=== PATIENT | male | born 1955 | race Caucasian/White ===

== ENCOUNTER 2020-07-10 13:57 | Inpatient (IN) | payer OTHER ==
--- NOTE | 2020-07-10 14:09 | BHS.RME ---
Substance Use & Tx History - Substance Use History Xanax Substance amount: 2mg 3-4 tabs Frequency of use: Daily Substance route: Oral Date of Last Use: 07/10/20 Nicotine Substance amount: 20 ciggs Frequency of use: Daily Substance route: Smoking Date of Last Use: 07/10/20 Physical/Psych/Mental Status - Behavior General Behavior: Increased activity (restlessness, agitation) Eye Contact: Normal - Cooperativeness Cooperativeness: Cooperative - Thinking Thought Processes: Tight, Logical, Goal Directed - Physical Health Problems Is patient presently having any pain?: No Does patient presently have any injuries (include location): No Does patient currently have a fever: No Is patient : No CIWA Nausea/Vomitin-No Nausea/No Vomiting Muscle Tremors: 2 Anxiety: 2 Agitation: 2 Paroxysmal Sweats: No Perspiration Orientation: 0-Oriented Tacttile Disturbances: 0-None Auditory Disturbances: 0-None Visual Disturbances: 0-None Headache: 0-None Present CIWA-Ar Total Score: 6
--- NOTE | 2020-07-10 15:55 | HP ---
CIWA Score Nausea/Vomitin-No Nausea/No Vomiting (Patient has poor living conditions and is at high risk of relapse.) Muscle Tremors: 2 Anxiety: 2 Agitation: 2 Paroxysmal Sweats: No Perspiration Orientation: 0-Oriented Tacttile Disturbances: 0-None Auditory Disturbances: 0-None Visual Disturbances: 0-None Headache: 0-None Present CIWA-Ar Total Score: 6 - Admission Criteria OASAS Guidelines: Admission for Medically Managed Detox: Requires at least one of the followin. CIWA greater than 12 2. Seizures within the past 24 hours 3. Delirium tremens within the past 24 hours 4. Hallucinations within the past 24 hours 5. Acute intervention needed for co occurring medical disorder 6. Acute intervention needed for co occurring psychiatric disorder 7. Severe withdrawal that cannot be handled at a lower level of care (continued vomiting, continued diarrhea, abnormal vital signs) requiring intravenous medication and/or fluids 8. Admitting History and Physical - Admission History of Present Illness: Patient is a 64 y.o. M PMHx of diabetes, asthma, epilepsy, hep c. Substance use consists of Xanax 3-4 2mg tabs a day and smoke several cigarettes a day. Patient is in no acute distress and has no further complaints. - Substance Use History Xanax Substance amount: 2mg 3-4 tabs Frequency of use: Daily Substance route: Oral Date of Last Use: 07/10/20 Nicotine Substance amount: 20 ciggs Frequency of use: Daily Substance route: Smoking Date of Last Use: 07/10/20 History Source: Patient Limitations to Obtaining History: No Limitations - Past Medical History REGULATORY AFFAIRS ASSISTANT: Yes: Seizure Cardiovascular: No: HTN, Hyperlipdemia Pulmonary: Yes: Pneumonia. No: Pulmonary Embolus Gastrointestinal: No: GERD, GI Bleed Hepatobiliary: Yes: Hepatitis C Infectious Disease: No: HIV, STD's, Tuberculosis Psych: Yes: Depression - Past Surgical History Past Surgical History: Yes: Joint Replacement (R hip fracture and L leg hardware) - Smoking History Smoking history: Current every day smoker Have you smoked in the past 12 months: Yes Aproximately how many cigarettes per day: 8 - Alcohol/Substance Use Hx Alcohol Use: No History of Substance Use: reports: Prescription (xanax) - Social History Usual Living Arrangement: Yes: Alone ADL: Independent Occupation: none History of Recent Travel: No Admission ROS S - HPI Allergies/Adverse Reactions: Allergies Allergy/AdvReac Type Severity Reaction Status Date / Time No Known Allergies Allergy Verified 05/12/16 12:36 History of Present Illness: Patient is a 64 y.o. M PMHx of diabetes, asthma, epilepsy, hep c. Substance use consists of Xanax 3-4 2mg tabs a day and smoke several cigarettes a day. Patient is in no acute distress and has no further complaints. - Substance Use History Xanax Substance amount: 2mg 3-4 tabs Frequency of use: Daily Substance route: Oral Date of Last Use: 07/10/20 Nicotine Substance amount: 20 ciggs Frequency of use: Daily Substance route: Smoking Date of Last Use: 07/10/20 Exam Limitations: No Limitations - Ebola screening Have you traveled outside of the country in the last 21 days: No Have you had contact with anyone from an Ebola affected area: No Have you been sick,other than usual withdrawal symptoms: No Do you have a fever: No - Review of Systems Constitutional: No Symptoms Reported EENT: denies: Blurred Vision Respiratory: reports: Cough. denies: Shortness of Breath Cardiac: reports: Chest Pain. denies: Lightheadedness GI: denies: Constipated, Diarrhea, Nausea, Vomiting : reports: No Symptoms Reported Musculoskeletal: reports: No Symptoms Reported, Joint Stiffness. denies: Muscle Weakness Integumentary: reports: No Symptoms Reported Neuro: reports: Seizure. denies: Headache, Numbness Endocrine: reports: No Symptoms Reported Hematology: denies: Easy Bleeding Psychiatric: reports: No Sypmtoms Reported, Judgement Intact, Mood/Affect Appropiate, Orientated x3, Depressed Other Systems: Reviewed and Negative Patient History - Patient Medical History Hx Anemia: No Hx Asthma: Yes (MDI) Hx Chronic Obstructive Pulmonary Disease (COPD): Yes (EMPHYSEMA;BRONCHITIS) Hx Cardiac Disorders: No Hx Hypertension: No Hx Hypercholesterolemia: No HX Cerebrovascular Accident: No Hx Seizures: Yes (many years;ON [facility]) Hx Diabetes: Yes (BGM-89) Hx Gastrointestinal Disorders: No Hx Genitourinary Disorders: No Hx Sexually Transmitted Disorders: No Hx Renal Disease (ESRD): No Hx Thyroid Disease: No Hx Human Immunodeficiency Virus (HIV): No (NEGATIVE HX) Hx Hepatitis C: Yes (TREATED X 1 YR) Hx Depression: No Hx Suicide Attempt: No Hx Schizophrenia: No - Patient Surgical History Past Surgical History: Yes Hx Orthopedic Surgery: Yes (Fx lt leg 2015) Anesthesia Reaction: No - PPD History Date: 05/14/16 - Smoking Cessation Smoking history: Current every day smoker Have you smoked in the past 12 months: Yes Aproximately how many cigarettes per day: 8 Hx Chewing Tobacco Use: No Initiated information on smoking cessation: Yes 'Breaking Loose' booklet given: 07/10/[address] [facility] - Physical General Appearance: Yes: Within Normal Limits, No Apparent Distress, Nourished, Appropriately Dressed HEENTM: Yes: Within Normal Limits Respiratory: Yes: Within Normal Limits, No Respiratory Distress, No Accessory Muscle Use, Crackles Cardiology: Yes: Within Normal Limits, Regular Rhythm, Regular Rate Abdominal: Yes: Within Normal Limits, Normal Bowel Sounds, Non Tender, Flat, Soft. No: Tenderness Back: Yes: Within Normal Limits, Normal Inspection. No: CVA Tenderness Musculoskeletal: Yes: Within Normal Limits, Gait Steady, Muscle Pain (L leg) Extremities: Yes: Within Normal Limits, Normal Inspection, Non-Tender. No: Calf Tenderness Neurological: Yes: Within Normal Limits, Fully Oriented, Alert, Normal Mood/Affect, Normal Response Integumentary: Yes: Within Normal Limits, Normal Color, Dry - Diagnostic (1) Asthma Current Visit: No Status: Chronic Qualifiers: Asthma severity: mild intermittent Asthma complication type: uncomplicated (2) History of seizure disorder Current Visit: No Status: Chronic (3) Methadone maintenance therapy patient Current Visit: No Status: Chronic (4) Sedative, hypnotic or anxiolytic dependence with withdrawal, uncomplicated Current Visit: No Status: Chronic (5) Type 2 diabetes mellitus Current Visit: No Status: Chronic Qualifiers: Diabetes mellitus complication status: without complication (6) Use of cane as ambulatory aid Current Visit: No Status: Chronic Cleared for Admission [facility] - Detox or Rehab [facility] Level of Care: Medically Managed Vital Signs - Vital Signs Vital signs refused: No Temperature: 99.6 F Pulse Rate: 84 Respiratory Rate: 12 Blood Pressure: 141/79 - Height Height: 1.73 m - Weight Weight: 48.081 kg - BMI Body Mass Index (BMI): 16.1 Urine Drug Screen - Results Urine drug screen results: BZO-Benzodiazepines Inpatient Rehab Admission - Rehab Decision to Admit Inpatient rehab admission?: No
[2020-07-10] MEDS ORDERED: LORazepam 1 MG TABLET PO PRN (16:01)
[2020-07-10] MEDS ORDERED: MAGNESIUM HYDROX 2400MG/30ML ORAL SUSPENSION 30 ML CUP PO PRN (16:01)
[2020-07-10] MEDS ORDERED: MAG HYDROX/AL HYDROX/SIMETH 30 ML UNIT-DOSE CUP PO PRN (16:01)
[2020-07-10] MEDS ORDERED: MAGNESIUM CITRATE 300 ML BOTTLE PO PRN (16:01)
[2020-07-10] MEDS ORDERED: NICOTINE POLACRILEX 2 MG GUM BUC PRN (16:01)
[2020-07-10] MEDS ORDERED: IBUPROFEN 400 MG TABLET (FP) PO PRN (16:01)
[2020-07-10] MEDS ORDERED: ONDANSETRON *ODT* 4 MG TABLET SL PRN (16:01)
[2020-07-10] MEDS ORDERED: MENTHOL/PHENOL 1 EACH UD MM PRN (16:01)
[2020-07-10] MEDS ORDERED: METHOCARBAMOL 500 MG TABLET PO PRN (16:01)
[2020-07-10] MEDS ORDERED: BISMUTH SUBSALICYLATE 524 MG/30 ML UD PO PRN (16:01)
[2020-07-10] MEDS ORDERED: ACETAMINOPHEN 325 MG TABLET (FP) PO PRN ×2 (16:01)
[2020-07-10] MEDS: LORazepam 2 MG TABLET PO SCH ×2 (19:22→23:42)
[2020-07-10] MEDS: hydrOXYzine PAMOATE 25 MG CAPSULE (FP) PO SCH ×2 (19:29→23:25)
[2020-07-10] MEDS: levETIRAcetam 500 MG TABLET (FP) PO SCH (23:24)
[2020-07-10] MEDS: THIAMINE HCL 100 MG TABLET (FP) PO SCH (23:25)
[2020-07-10] MEDS: MELATONIN 5 MG TABLETS PO SCH (23:42)
[2020-07-11] MEDS: LORazepam 2 MG TABLET PO SCH ×4 (06:35→22:41)
[2020-07-11] MEDS: hydrOXYzine PAMOATE 25 MG CAPSULE (FP) PO SCH ×5 (06:35→22:41)
[2020-07-11] MEDS: metFORMIN HCL 500 MG TABLET (FP) PO SCH (06:38)
[2020-07-11] MEDS ORDERED: ALBUTEROL SO4 HFA INHALER IH PRN (09:44)
[2020-07-11] MEDS ORDERED: METHADONE HCL 40 MG DISPERSABLE TABLET PO ONE (10:00)
[2020-07-11] MEDS: levETIRAcetam 500 MG TABLET (FP) PO SCH ×2 (10:25→22:41)
[2020-07-11] MEDS: PRENATAL VITAMINS W/ FOLIC ACID TABLET (FP) PO SCH (10:25)
[2020-07-11 10:31] LABS: HEMATOCRIT 31.4 % (35.4-49); MCH 26.5 pg (25.7-33.7); MCHC 31.9 g/dl (32.0-35.9); MEAN CELL VOLUME 82.9 fl (80-96); MEAN PLT VOLUME 9.9 fl (7.5-11.1); PLATELET COUNT 119 K/MM3 (134-434); RBC 3.78 M/mm3 (4.00-5.60); RDW 18.9 % (11.9-15.9); WHITE BLOOD COUNT 6.1 K/mm3 (4.0-10.0)
[2020-07-11 10:34] LABS: ALBUMIN 2.7 g/dl (3.4-5.0); BILIRUBIN,TOTAL 0.2 mg/dL (0.2-1); BLOOD UREA NITROGEN 26.3 mg/dL (7-18); CALCIUM 8.5 mg/dL (8.5-10.1); POTASSIUM 4.4 mmol/L (3.5-5.1); TOT PROT 6.5 g/dl (6.4-8.2)
--- NOTE | 2020-07-11 10:41 | PN ---
[facility] CIWA - CIWA Score Nausea/Vomitin-Mild Nausea/No Vomiting Muscle Tremors: 2 Anxiety: 2 Agitation: 2 Paroxysmal Sweats: 1-Minimal Palms Moist Orientation: 0-Oriented Tacttile Disturbances: 1-Very Mild Itch/Numbness Auditory Disturbances: 0-None Visual Disturbances: 0-None Headache: 1-Very Mild CIWA-Ar Total Score: 10 S Progress Note (SOAP) Subjective: alert,irritable,anxious,interrupted sleep,tremor,aching pain Objective: 07/11/20 10:37 Vital Signs Temperature 97.5 F L 07/11/20 08:43 Pulse Rate 64 07/11/20 08:43 Respiratory Rate 18 07/11/20 08:43 Blood Pressure 149/79 07/11/20 08:43 O2 Sat by Pulse Oximetry (%) 97 07/11/20 06:24 Laboratory Last Values WBC 6.1 K/mm3 (4.0-10.0) 07/11/20 07:50 RBC 3.78 M/mm3 (4.00-5.60) L 07/11/20 07:50 Hgb 10.0 GM/dL (11.7-16.9) L 07/11/20 07:50 Hct 31.4 % (35.4-49) L D 07/11/20 07:50 MCV 82.9 fl (80-96) 07/11/20 07:50 MCH 26.5 pg (25.7-33.7) 07/11/20 07:50 MCHC 31.9 g/dl (32.0-35.9) L 07/11/20 07:50 RDW 18.9 % (11.9-15.9) H 07/11/20 07:50 Plt Count 119 K/MM3 (134-434) L D 07/11/20 07:50 MPV 9.9 fl (7.5-11.1) D 07/11/20 07:50 Sodium 142 mmol/L (136-145) 07/11/20 07:50 Potassium 4.4 mmol/L (3.5-5.1) 07/11/20 07:50 Chloride 109 mmol/L (98-107) H 07/11/20 07:50 Carbon Dioxide 27 mmol/L (21-32) 07/11/20 07:50 Anion Gap 7 MMOL/L (8-16) L 07/11/20 07:50 BUN 26.3 mg/dL (7-18) H 07/11/20 07:50 Creatinine 1.0 mg/dL (0.55-1.3) 07/11/20 07:50 Est GFR (CKD-EPI)AfAm 91.78 07/11/20 07:50 Est GFR (CKD-EPI)NonAf 79.19 07/11/20 07:50 POC Glucometer 102 UNITS (80-120) 07/11/20 06:20 Random Glucose 108 mg/dL (74-106) H 07/11/20 07:50 Calcium 8.5 mg/dL (8.5-10.1) 07/11/20 07:50 Total Bilirubin 0.2 mg/dL (0.2-1) 07/11/20 07:50 AST 37 U/L (15-37) 07/11/20 07:50 ALT 40 U/L (13-61) 07/11/20 07:50 Alkaline Phosphatase 128 U/L (45-117) H 07/11/20 07:50 Total Protein 6.5 g/dl (6.4-8.2) 07/11/20 07:50 Albumin 2.7 g/dl (3.4-5.0) L 07/11/20 07:50 Assessment: 07/11/20 10:38 withdrawal symptom Plan: continue detox librium regimen,mmtp 80 mgs/day maintenance,encourage oral fluid,repeat bmp in am
[2020-07-11] MEDS: NICOTINE 7 MG/24 HOURS TOPICAL PATCH TD SCH (10:49)
--- NOTE | 2020-07-11 12:32 | CONSULT ---
[facility] Psychiatric Consult - Data Date of interview: 07/11/20 Admission source: [facility] Identifying data: Readmission to [facility] at [address] [place] [address] for this 64 y/o male self-referred for detoxification treatment. XENIA issues : opioid, benzodiazepine (xanax), nicotine. Patient is single, no dependents, homelss, unemployed and supported on SSI benefits. Substance Abuse History: Discussed with the patient. XENIA profile as follows : Xanax. Substance amount: 2mg 3-4 tabs. Frequency of use: Daily. Substance route: Oral. Date of Last Use: 07/10/20. Nicotine. Substance amount: 20 cigs. Frequency of use: Daily. Substance route: Smoking. Date of Last Use: 07/10/20. Smoking history: Current every day smoker. Have you smoked in the past 12 months: Yes. Aproximately how many cigarettes per day: 8. - Alcohol/Substance Use. Hx Alcohol Use: No. History of Substance Use: reports: Prescription (xanax) Medical History: Medicall profile is remarkable for diabetes mellitus, bronchial asthma, hepatitis C, emphysema, seizure disorder and history of orthosurgery : joint replacement (right hip fracture) + ORIF (left leg : hardware in situ). No known allergies. Psychiatric History: Patient is a limited historian (forgetful). He denies history of psychiatric hospitalizations. Mr Mcarthur reports current psychiatric follow-up at the [facility] MMTP program in [place], [place] (maintained on 80 mg of methadone daily). He indicates that he has been prescribed olanzapine but he does not recall dose. Endorses diagnosis of Anxiety Disorder. Patient denies history of suicide attempts. Physical/Sexual Abuse/Trauma History: Patient denies history of abuse. Additional Comment: Urine drug screen results: BZO-Benzodiazepines. Noted. Mental Status Exam - Mental Status Exam Alert and Oriented to: Time, Place, Person Cognitive Function: Good Patient Appearance: Unkempt, Disheveled (small stature, cachectic frame) Mood: Nervous, Withdrawn Affect: Mood Congruent, Constricted Patient Behavior: Fatigued, Appropriate, Cooperative Speech Pattern: Clear, Appropriate Voice Loudness: Normal Thought Process: Goal Oriented Thought Disorder: Not Present Hallucinations: Denies Suicidal Ideation: Denies Homicidal Ideation: Denies Insight/Judgement: Poor Sleep: Fair Appetite: Poor, Weight loss Gait/Station: Other (walks with cane) Psychiatric Findings - Problem List ([place] 1, 2,3) (1) Sedative, hypnotic or anxiolytic dependence with withdrawal, uncomplicated Current Visit: Yes Status: Acute (2) Opioid dependence on agonist therapy Current Visit: Yes Status: Chronic (3) Nicotine dependence Current Visit: Yes Status: Chronic (4) Substance induced mood disorder Current Visit: Yes Status: Chronic (5) History of anxiety disorder Current Visit: Yes Status: Chronic - Initial Treatment Plan Initial Treatment Plan: Psychoeducation. Sleep hygiene. Detoxification in prog ress. Observation.
[2020-07-11 13:08] VITALS: BMI 16.1
--- NOTE | 2020-07-11 13:33 | EKG ---
Test Reason : Blood Pressure : / mmHG Vent. Rate : 068 BPM Atrial Rate : 068 BPM P-R Int : 152 ms QRS Dur : 076 ms QT Int : 426 ms P-R-T Axes : 071 -56 073 degrees QTc Int : 452 ms SINUS RHYTHM WITH OCCASIONAL PREMATURE VENTRICULAR COMPLEXES LEFT AXIS DEVIATION ABNORMAL ECG Confirmed by MD NILA, ROGERIO ([id number]) on 07/11/2020 1:32:39 PM Referred By: Confirmed By:ROGERIO DOTSON MD
[2020-07-11] MEDS: THIAMINE HCL 100 MG TABLET (FP) PO SCH (22:41)
[2020-07-11] MEDS: MELATONIN 5 MG TABLETS PO SCH (22:41)
[2020-07-12] MEDS: hydrOXYzine PAMOATE 25 MG CAPSULE (FP) PO SCH ×5 (05:39→22:22)
[2020-07-12] MEDS: LORazepam 1 MG TABLET PO SCH ×4 (05:39→22:22)
[2020-07-12] MEDS: METHADONE HCL 40 MG DISPERSABLE TABLET PO SCH (05:39)
[2020-07-12] MEDS: metFORMIN HCL 500 MG TABLET (FP) PO SCH ×2 (06:26→17:37)
[2020-07-12] MEDS ORDERED: metFORMIN HCL 500 MG TABLET (FP) PO SCH (08:30)
[2020-07-12] MEDS: levETIRAcetam 500 MG TABLET (FP) PO SCH ×2 (10:21→22:23)
[2020-07-12] MEDS: PRENATAL VITAMINS W/ FOLIC ACID TABLET (FP) PO SCH (10:21)
[2020-07-12] MEDS: NICOTINE 7 MG/24 HOURS TOPICAL PATCH TD SCH (10:23)
[2020-07-12 11:09] LABS: CALCIUM 9.4 mg/dL (8.5-10.1); POTASSIUM 4.5 mmol/L (3.5-5.1)
[2020-07-12 11:23] LABS: BLOOD UREA NITROGEN 30.1 mg/dL (7-18)
--- NOTE | 2020-07-12 13:01 | PN ---
S CIWA - CIWA Score Nausea/Vomitin-Mild Nausea/No Vomiting Muscle Tremors: 2 Anxiety: 2 Agitation: 2 Paroxysmal Sweats: No Perspiration Orientation: 0-Oriented Tacttile Disturbances: 0-None Auditory Disturbances: 0-None Visual Disturbances: 0-None Headache: 2-Mild CIWA-Ar Total Score: 9 BHS Progress Note (SOAP) Subjective: alert,irritable,anxious,interrupted sleep,tremor,aching pain in the body,nausea Objective: 07/12/20 13:02 Vital Signs Temperature 97.3 F L 07/12/20 08:31 Pulse Rate 101 H 07/12/20 08:31 Respiratory Rate 20 07/12/20 08:31 Blood Pressure 138/78 07/12/20 08:31 O2 Sat by Pulse Oximetry (%) 98 07/12/20 06:22 07/12/20 13:02 Laboratory Last Values WBC 6.1 K/mm3 (4.0-10.0) 07/11/20 07:50 RBC 3.78 M/mm3 (4.00-5.60) L 07/11/20 07:50 Hgb 10.0 GM/dL (11.7-16.9) L 07/11/20 07:50 Hct 31.4 % (35.4-49) L D 07/11/20 07:50 MCV 82.9 fl (80-96) 07/11/20 07:50 MCH 26.5 pg (25.7-33.7) 07/11/20 07:50 MCHC 31.9 g/dl (32.0-35.9) L 07/11/20 07:50 RDW 18.9 % (11.9-15.9) H 07/11/20 07:50 Plt Count 119 K/MM3 (134-434) L D 07/11/20 07:50 MPV 9.9 fl (7.5-11.1) D 07/11/20 07:50 Sodium 138 mmol/L (136-145) 07/12/20 08:45 Potassium 4.5 mmol/L (3.5-5.1) 07/12/20 08:45 Chloride 103 mmol/L (98-107) 07/12/20 08:45 Carbon Dioxide 29 mmol/L (21-32) 07/12/20 08:45 Anion Gap 6 MMOL/L (8-16) L 07/12/20 08:45 BUN 30.1 mg/dL (7-18) H 07/12/20 08:45 Creatinine 1.0 mg/dL (0.55-1.3) 07/12/20 08:45 Est GFR (CKD-EPI)AfAm 91.78 07/12/20 08:45 Est GFR (CKD-EPI)NonAf 79.19 07/12/20 08:45 POC Glucometer 80 UNITS (80-120) 07/12/20 05:44 Random Glucose 107 mg/dL (74-106) H 07/12/20 08:45 Calcium 9.4 mg/dL (8.5-10.1) 07/12/20 08:45 Total Bilirubin 0.2 mg/dL (0.2-1) 07/11/20 07:50 AST 37 U/L (15-37) 07/11/20 07:50 ALT 40 U/L (13-61) 07/11/20 07:50 Alkaline Phosphatase 128 U/L (45-117) H 07/11/20 07:50 Total Protein 6.5 g/dl (6.4-8.2) 07/11/20 07:50 Albumin 2.7 g/dl (3.4-5.0) L 07/11/20 07:50 Syphilis Serology Non-reactive (NONREACTIVE) 07/11/20 07:50 COVID-19 ([facility]) Not detected (Not Detected) 07/10/20 17:30 Assessment: 07/12/20 13:03 withdrawal symptom Plan: continue detox ativan regimen,encourage fluid,hydration,continue detox methadone maintenance 80 mgs/day maintenance
[2020-07-12] MEDS: THIAMINE HCL 100 MG TABLET (FP) PO SCH (22:23)
[2020-07-12] MEDS: MELATONIN 5 MG TABLETS PO SCH (22:23)
[2020-07-13] MEDS: metFORMIN HCL 500 MG TABLET (FP) PO SCH ×2 (06:33→18:30)
[2020-07-13] MEDS: LORazepam 0.5 MG TABLET PO SCH ×4 (06:33→22:28)
[2020-07-13] MEDS: hydrOXYzine PAMOATE 25 MG CAPSULE (FP) PO SCH ×5 (06:33→22:28)
[2020-07-13] MEDS: METHADONE HCL 40 MG DISPERSABLE TABLET PO SCH (06:33)
[2020-07-13] MEDS: LORazepam 0.5 MG TABLET PO PRN ×2 (09:30→14:07)
[2020-07-13] MEDS: levETIRAcetam 500 MG TABLET (FP) PO SCH ×2 (10:21→22:28)
[2020-07-13] MEDS: PRENATAL VITAMINS W/ FOLIC ACID TABLET (FP) PO SCH (10:22)
[2020-07-13] MEDS: NICOTINE 7 MG/24 HOURS TOPICAL PATCH TD SCH (10:22)
--- NOTE | 2020-07-13 15:18 | PN ---
[facility] CIWA - CIWA Score Nausea/Vomitin-No Nausea/No Vomiting Muscle Tremors: None Anxiety: 1-Mildly Anxious Agitation: 0-Normal Activity Paroxysmal Sweats: No Perspiration Orientation: 0-Oriented Tacttile Disturbances: 0-None Auditory Disturbances: 0-None Visual Disturbances: 0-None Headache: 0-None Present CIWA-Ar Total Score: 1 S Progress Note (SOAP) Subjective: alert,no complaint Objective: 07/13/20 15:17 Vital Signs Temperature 98.2 F 07/13/20 12:38 Pulse Rate 87 07/13/20 12:38 Respiratory Rate 18 07/13/20 12:38 Blood Pressure 132/79 07/13/20 12:38 O2 Sat by Pulse Oximetry (%) 98 07/13/20 12:38 Assessment: 07/13/20 15:17 no withdrawal symptom Plan: stable for discharge to rehab
--- NOTE | 2020-07-13 15:19 | DS ---
[facility] Detox Discharge Summary Admission Date: 07/10/20 Discharge Date: 07/13/20 - History Present History: Sedative Dependence, MMTP Additional Comments: alert,oriented x 3 ambulation on the unit lung clear on auscultation bilaterally no abdominal pain no swelling of the leg no withdrawal symptom stable for discharge to [facility] rehab Pertinent Past History: asthma hepatitis c insomnia type 2 dm - Physical Exam Results Vital Signs: Vital Signs Temperature 98.2 F 07/13/20 12:38 Pulse Rate 87 07/13/20 12:38 Respiratory Rate 18 07/13/20 12:38 Blood Pressure 132/79 07/13/20 12:38 O2 Sat by Pulse Oximetry (%) 98 07/13/20 12:38 Pertinent Admission Physical Exam Findings: withdrawal signs and symptom Laboratory Last Values WBC 6.1 K/mm3 (4.0-10.0) 07/11/20 07:50 RBC 3.78 M/mm3 (4.00-5.60) L 07/11/20 07:50 Hgb 10.0 GM/dL (11.7-16.9) L 07/11/20 07:50 Hct 31.4 % (35.4-49) L D 07/11/20 07:50 MCV 82.9 fl (80-96) 07/11/20 07:50 MCH 26.5 pg (25.7-33.7) 07/11/20 07:50 MCHC 31.9 g/dl (32.0-35.9) L 07/11/20 07:50 RDW 18.9 % (11.9-15.9) H 07/11/20 07:50 Plt Count 119 K/MM3 (134-434) L D 07/11/20 07:50 MPV 9.9 fl (7.5-11.1) D 07/11/20 07:50 Sodium 138 mmol/L (136-145) 07/12/20 08:45 Potassium 4.5 mmol/L (3.5-5.1) 07/12/20 08:45 Chloride 103 mmol/L (98-107) 07/12/20 08:45 Carbon Dioxide 29 mmol/L (21-32) 07/12/20 08:45 Anion Gap 6 MMOL/L (8-16) L 07/12/20 08:45 BUN 30.1 mg/dL (7-18) H 07/12/20 08:45 Creatinine 1.0 mg/dL (0.55-1.3) 07/12/20 08:45 Est GFR (CKD-EPI)AfAm 91.78 07/12/20 08:45 Est GFR (CKD-EPI)NonAf 79.19 07/12/20 08:45 POC Glucometer 108 UNITS (80-120) 07/13/20 06:41 Random Glucose 107 mg/dL (74-106) H 07/12/20 08:45 Calcium 9.4 mg/dL (8.5-10.1) 07/12/20 08:45 Total Bilirubin 0.2 mg/dL (0.2-1) 07/11/20 07:50 AST 37 U/L (15-37) 07/11/20 07:50 ALT 40 U/L (13-61) 07/11/20 07:50 Alkaline Phosphatase 128 U/L (45-117) H 07/11/20 07:50 Total Protein 6.5 g/dl (6.4-8.2) 07/11/20 07:50 Albumin 2.7 g/dl (3.4-5.0) L 07/11/20 07:50 Syphilis Serology Non-reactive (NONREACTIVE) 07/11/20 07:50 COVID-19 ([facility]) Not detected (Not Detected) 07/10/20 17:30 Vital Signs Temperature 98.2 F 07/13/20 12:38 Pulse Rate 87 07/13/20 12:38 Respiratory Rate 18 07/13/20 12:38 Blood Pressure 132/79 07/13/20 12:38 O2 Sat by Pulse Oximetry (%) 98 07/13/20 12:38 - Treatment Hospital Course: Detox Protocol Followed, Detoxed Safely, Responded well, Discharged Condition Good, Rehab Referral Accepted Patient has Accepted a Rehab Referral to: [facility] - Medication Discharge Medications: Ambulatory Orders Albuterol Sulfate Inhaler - [Ventolin Hfa Inhaler -] 2 inh PO Q4H PRN 05/12/16 Levetiracetam [Keppra] 500 mg PO BID 05/12/16 Methadone [Dolophine -] 80 mg PO DAILY 05/12/16 metFORMIN HCL [Metformin HCl] 500 mg PO BID 05/12/16 - Diagnosis (1) Sedative, hypnotic or anxiolytic dependence with withdrawal, uncomplicated Current Visit: Yes Status: Acute (2) Opioid dependence on agonist therapy Current Visit: Yes Status: Chronic (3) Asthma Current Visit: No Status: Chronic Qualifiers: Asthma severity: mild intermittent Asthma complication type: uncomplicated (4) Hepatitis C Current Visit: No Status: Chronic Qualifiers: Viral hepatitis chronicity: chronic Hepatic coma status: without hepatic coma Qualified Code(s): B18.2 - Chronic viral hepatitis C (5) Type 2 diabetes mellitus Current Visit: No Status: Chronic Qualifiers: Diabetes mellitus complication status: without complication (6) Use of cane as ambulatory aid Current Visit: No Status: Chronic - AMA Did Patient Leave Against Medical Advice: No
[2020-07-13 21:26] VITALS: BP 157/81; PULSE 82; TEMP 96.9
[2020-07-13] MEDS: THIAMINE HCL 100 MG TABLET (FP) PO SCH (22:28)
[2020-07-13] MEDS: MELATONIN 5 MG TABLETS PO SCH (22:29)
[2020-07-14] MEDS ORDERED: LORazepam 0.5 MG TABLET PO ONE (05:00)
== END 2020-07-13 22:57 | disposition other institution (70) | DRG 773 ==
LOC: YASAS 13:57 → Y3N 17:11
PROVIDERS: ADMIT Allergy & Immunology; ATTEND Allergy & Immunology
PROC: HZ2ZZZZ Detoxification Services for Substance Abuse Treatment (ICD-10-PCS; principal; 2020-07-10)
DX: F13.230 Sedative, hypnotic or anxiolytic dependence with withdrawal, uncomplicated (principal); F11.20 Opioid dependence, uncomplicated; F17.210 Nicotine dependence, cigarettes, uncomplicated; F19.24 Other psychoactive substance dependence with psychoactive substance-induced mood disorder; F41.9 Anxiety disorder, unspecified; G47.00 Insomnia, unspecified; G40.909 Epilepsy, unspecified, not intractable, without status epilepticus; J45.20 Mild intermittent asthma, uncomplicated; J43.9 Emphysema, unspecified; E11.9 Type 2 diabetes mellitus without complications; Z79.84 Long term (current) use of oral hypoglycemic drugs; B18.2 Chronic viral hepatitis C; Z96.641 Presence of right artificial hip joint; Z99.89 Dependence on other enabling machines and devices; Z56.0 Unemployment, unspecified; Z59.0 Homelessness
CPT/HCPCS: 36415; 80048; 80053; 82962; 85027; 86780; 93005; 93010; U0003

== ENCOUNTER 2020-07-13 15:35 | Inpatient (IN) | payer OTHER ==
[2020-07-13] MEDS ORDERED: LOPERAMIDE HCL 2 MG CAPSULE PO PRN (15:45)
[2020-07-13] MEDS ORDERED: MAG HYDROX/AL HYDROX/SIMETH 30 ML UNIT-DOSE CUP PO PRN (15:45)
[2020-07-13] MEDS ORDERED: MENTHOL/PHENOL 1 EACH UD MM PRN (15:45)
[2020-07-13] MEDS ORDERED: NICOTINE POLACRILEX 2 MG GUM BUC PRN (15:45)
[2020-07-13] MEDS ORDERED: MAGNESIUM HYDROX 2400MG/30ML ORAL SUSPENSION 30 ML CUP PO PRN (15:45)
[2020-07-13] MEDS ORDERED: P-EPHED 60MG/TRIPROLIDI 2.5MG TABLET PO PRN (15:45)
[2020-07-13] MEDS ORDERED: guaiFENesin 200 MG/10 ML 10 ML UNIT-DOSE CUPS PO PRN (15:45)
[2020-07-13] MEDS ORDERED: MAGNESIUM CITRATE 300 ML BOTTLE PO PRN (15:45)
[2020-07-13] MEDS ORDERED: hydrOXYzine PAMOATE 25 MG CAPSULE (FP) PO PRN (15:45)
[2020-07-13] MEDS ORDERED: ACETAMINOPHEN 325 MG TABLET (FP) PO PRN (15:45)
[2020-07-13] MEDS ORDERED: IBUPROFEN 400 MG TABLET (FP) PO PRN (15:45)
--- NOTE | 2020-07-13 15:45 | HP ---
[facility] Rehab Assess/Revision - Admission History Admitted to Rehab from: [facility] Date of Admission to Rehab: 07/13/2020 - Findings Detox History & Physical reviewed: Yes Concur with findings: Yes Comments/Additional Findings: for rehab as protocol Inpatient Rehab Admission - Rehab Decision to Admit Inpatient rehab admission?: Yes - Initial Determination Are CD services needed?: Yes Free of communicable disease: Yes Not in need of hospitalization: Yes - Rehab Admission Criteria Previous failed treatment: Yes Poor recovery environment: Yes Comorbidities: Yes Lacks judgement: No Patient is meeting Inpatient Rehab admission criteria:: Yes
[2020-07-13] MEDS: levETIRAcetam 500 MG TABLET (FP) PO SCH (23:15)
[2020-07-13] MEDS: MELATONIN 5 MG TABLETS PO SCH (23:15)
[2020-07-13] MEDS: metFORMIN HCL 500 MG TABLET (FP) PO SCH (23:15)
[2020-07-13] MEDS: THIAMINE HCL 100 MG TABLET (FP) PO SCH (23:16)
[2020-07-14] MEDS ORDERED: METHADONE HCL 10 MG TABLET PO SCH (06:00)
[2020-07-14] MEDS: METHADONE HCL 40 MG DISPERSABLE TABLET PO SCH (06:20)
[2020-07-14] MEDS: metFORMIN HCL 500 MG TABLET (FP) PO SCH ×2 (07:30→16:46)
[2020-07-14] MEDS: levETIRAcetam 500 MG TABLET (FP) PO SCH ×2 (10:11→21:43)
[2020-07-14] MEDS: PRENATAL VITAMINS W/ FOLIC ACID TABLET (FP) PO SCH (10:11)
[2020-07-14] MEDS: NICOTINE 7 MG/24 HOURS TOPICAL PATCH TD SCH (10:11)
[2020-07-14] MEDS: ALBUTEROL SO4 HFA INHALER IH PRN (11:19)
[2020-07-14] MEDS: MELATONIN 5 MG TABLETS PO SCH (21:43)
[2020-07-14] MEDS: THIAMINE HCL 100 MG TABLET (FP) PO SCH (21:43)
[2020-07-15] MEDS: METHADONE HCL 40 MG DISPERSABLE TABLET PO SCH (05:58)
[2020-07-15] MEDS: metFORMIN HCL 500 MG TABLET (FP) PO SCH ×2 (07:23→17:05)
[2020-07-15] MEDS: ALBUTEROL SO4 HFA INHALER IH PRN (08:22)
[2020-07-15] MEDS: levETIRAcetam 500 MG TABLET (FP) PO SCH ×2 (10:18→21:06)
[2020-07-15] MEDS: PRENATAL VITAMINS W/ FOLIC ACID TABLET (FP) PO SCH (10:18)
[2020-07-15] MEDS: NICOTINE 7 MG/24 HOURS TOPICAL PATCH TD SCH (10:18)
[2020-07-15] MEDS: THIAMINE HCL 100 MG TABLET (FP) PO SCH (21:07)
[2020-07-15] MEDS: MELATONIN 5 MG TABLETS PO SCH (21:07)
[2020-07-16] MEDS: METHADONE HCL 40 MG DISPERSABLE TABLET PO SCH (06:03)
[2020-07-16] MEDS: metFORMIN HCL 500 MG TABLET (FP) PO SCH ×2 (06:55→16:25)
[2020-07-16] MEDS: levETIRAcetam 500 MG TABLET (FP) PO SCH ×2 (09:30→21:00)
[2020-07-16] MEDS: PRENATAL VITAMINS W/ FOLIC ACID TABLET (FP) PO SCH (09:30)
[2020-07-16] MEDS: NICOTINE 7 MG/24 HOURS TOPICAL PATCH TD SCH (09:31)
[2020-07-16] MEDS: THIAMINE HCL 100 MG TABLET (FP) PO SCH (21:00)
[2020-07-16] MEDS: MELATONIN 5 MG TABLETS PO SCH (21:00)
[2020-07-17] MEDS: METHADONE HCL 40 MG DISPERSABLE TABLET PO SCH (06:06)
[2020-07-17] MEDS: ALBUTEROL SO4 HFA INHALER IH PRN (07:16)
[2020-07-17] MEDS: metFORMIN HCL 500 MG TABLET (FP) PO SCH ×2 (07:18→16:31)
[2020-07-17] MEDS: levETIRAcetam 500 MG TABLET (FP) PO SCH ×2 (09:51→21:02)
[2020-07-17] MEDS: PRENATAL VITAMINS W/ FOLIC ACID TABLET (FP) PO SCH (09:51)
[2020-07-17] MEDS: NICOTINE 7 MG/24 HOURS TOPICAL PATCH TD SCH (10:00)
[2020-07-17] MEDS: MELATONIN 5 MG TABLETS PO SCH (21:02)
[2020-07-17] MEDS: THIAMINE HCL 100 MG TABLET (FP) PO SCH (21:02)
[2020-07-18] MEDS: METHADONE HCL 40 MG DISPERSABLE TABLET PO SCH (05:58)
[2020-07-18] MEDS: metFORMIN HCL 500 MG TABLET (FP) PO SCH ×2 (07:19→16:35)
[2020-07-18] MEDS ORDERED: MASKS NR ONE (07:22)
[2020-07-18] MEDS: PRENATAL VITAMINS W/ FOLIC ACID TABLET (FP) PO SCH (09:51)
[2020-07-18] MEDS: levETIRAcetam 500 MG TABLET (FP) PO SCH ×2 (09:51→21:20)
[2020-07-18] MEDS: NICOTINE 7 MG/24 HOURS TOPICAL PATCH TD SCH (09:52)
[2020-07-18] MEDS: ALBUTEROL SO4 HFA INHALER IH PRN (09:52)
--- NOTE | 2020-07-18 17:33 | CONSULT ---
[facility] - Data Date of interview: 07/18/20 Admission source: Transfer from [address] [place] [address]. Identifying data: Detoxification completed at [address] [place] [address]. Patient is now admitted to [address] for rehabilitation treatment. XENIA issues : opioid, benzodiazepine (xanax), nicotine. Patient is a 64 y/o male, single, no dependents, homeless, unemployed and supported on SSI benefits. Substance Abuse History: Discussed with the patient. XENIA profile as follows : Xanax. Substance amount: 2mg 3-4 tabs. Frequency of use: Daily. Substance route: Oral. Date of Last Use: 07/10/20. Nicotine. Substance amount: 20 cigs. Frequency of use: Daily. Substance route: Smoking. Date of Last Use: 07/10/20. Smoking history: Current every day smoker. Have you smoked in the past 12 months: Yes. Approximately how many cigarettes per day: 8. - Alcohol/Substance Use. Hx Alcohol Use: No. History of Substance Use: reports: Prescription (xanax) Medical History: Medical profile is remarkable for diabetes mellitus, bronchial asthma, hepatitis C, emphysema, seizure disorder and history of orthosurgery : joint replacement (right hip fracture) + ORIF (left leg : hardware in situ). No known allergies. Psychiatric History: Patient is a limited historian (forgetful). He denies history of psychiatric hospitalizations. Mr Mcarthur reports current psychiatric follow-up at the [facility] program in [place], [place] (maintained on 80 mg of methadone daily). He indicates that he has been prescribed olanzapine but he does not recall dose. Endorses diagnosis of Anxiety Disorder. Patient denies history of suicide attempts. Physical/Sexual Abuse/Trauma History: Patient denies history of abuse. Additional Comment: Urine drug screen results: BZO-Benzodiazepines. Noted. Mental Status Exam - Mental Status Exam Alert and Oriented to: Time, Place, Person Patient Appearance: Unkempt, Disheveled Mood: Withdrawn, Hopeful Affect: Mood Congruent, Constricted Patient Behavior: Fatigued, Appropriate, Cooperative Speech Pattern: Clear, Appropriate Voice Loudness: Normal Thought Process: Goal Oriented Thought Disorder: Not Present Hallucinations: Denies Suicidal Ideation: Denies Homicidal Ideation: Denies Insight/Judgement: Poor Sleep: Poorly, Difficulty falling asleep Appetite: Poor, Weight loss Gait/Station: Normal Psychiatric Findings - Problem List ([place] 1, 2,3) (1) Sedative hypnotic or anxiolytic dependence Current Visit: Yes Status: Chronic Comment: . (2) Opioid dependence on agonist therapy Current Visit: Yes Status: Chronic Comment: . (3) Nicotine dependence Current Visit: Yes Status: Chronic Comment: . (4) Substance induced mood disorder Current Visit: Yes Status: Chronic Comment: . (5) History of anxiety disorder Current Visit: Yes Status: Chronic Comment: . (6) Insomnia Current Visit: Yes Status: Chronic Comment: . (7) Non-compliance Current Visit: Yes Status: Chronic Comment: .Non-adherence to medications in the community. - Initial Treatment Plan Initial Treatment Plan: [employer] contacted patient's pharmacy, [facility], at [phone] for verification of medications. Pharmacist reported patient's psychotropic medications to be the following : aricept 5 mg/day + zyprexa 20 mg/day + remeron 30 mg/hs (refills dated 12/22/19). Patient has significant difficulty remembering his medications (cognitive decline suspected). He insists on resuming zyprexa (specifically) and getting " a strong medication for sleep ". Psychoeducation provided. Support. Medication : remeron 7.5 mg po hs. Side effects/benefits discussed. Patient agrees with plan of care. Olanzapine not resumed (in view of context of diabetes mellitus). Observation.
[2020-07-18] MEDS: MELATONIN 5 MG TABLETS PO SCH (21:21)
[2020-07-18] MEDS: MIRTAZAPINE 15 MG TABLET (FP) PO SCH (21:21)
[2020-07-18] MEDS: THIAMINE HCL 100 MG TABLET (FP) PO SCH (21:21)
[2020-07-18] MEDS ORDERED: OLANZapine 5 MG TABLET PO SCH (22:00)
[2020-07-19] MEDS: METHADONE HCL 40 MG DISPERSABLE TABLET PO SCH (06:34)
[2020-07-19] MEDS: metFORMIN HCL 500 MG TABLET (FP) PO SCH ×3 (07:05→16:46)
[2020-07-19] MEDS: PRENATAL VITAMINS W/ FOLIC ACID TABLET (FP) PO SCH (10:49)
[2020-07-19] MEDS: levETIRAcetam 500 MG TABLET (FP) PO SCH ×2 (10:50→20:59)
[2020-07-19] MEDS: ALBUTEROL SO4 HFA INHALER IH PRN (10:50)
[2020-07-19] MEDS: NICOTINE 7 MG/24 HOURS TOPICAL PATCH TD SCH (10:50)
[2020-07-19] MEDS: MELATONIN 5 MG TABLETS PO SCH (20:59)
[2020-07-19] MEDS: THIAMINE HCL 100 MG TABLET (FP) PO SCH (20:59)
[2020-07-19] MEDS: MIRTAZAPINE 15 MG TABLET (FP) PO SCH (20:59)
[2020-07-20] MEDS: METHADONE HCL 40 MG DISPERSABLE TABLET PO SCH (06:08)
[2020-07-20] MEDS: metFORMIN HCL 500 MG TABLET (FP) PO SCH ×2 (07:15→16:31)
[2020-07-20] MEDS: levETIRAcetam 500 MG TABLET (FP) PO SCH ×2 (10:35→21:43)
[2020-07-20] MEDS: PRENATAL VITAMINS W/ FOLIC ACID TABLET (FP) PO SCH (10:35)
[2020-07-20] MEDS: ALBUTEROL SO4 HFA INHALER IH PRN (10:36)
[2020-07-20] MEDS: NICOTINE 7 MG/24 HOURS TOPICAL PATCH TD SCH (10:54)
[2020-07-20] MEDS: THIAMINE HCL 100 MG TABLET (FP) PO SCH (21:43)
[2020-07-20] MEDS: MELATONIN 5 MG TABLETS PO SCH (21:43)
[2020-07-20] MEDS: MIRTAZAPINE 15 MG TABLET (FP) PO SCH (21:43)
[2020-07-21] MEDS: METHADONE HCL 40 MG DISPERSABLE TABLET PO SCH (06:25)
[2020-07-21] MEDS: metFORMIN HCL 500 MG TABLET (FP) PO SCH ×2 (07:16→16:34)
[2020-07-21] MEDS: NICOTINE 7 MG/24 HOURS TOPICAL PATCH TD SCH (10:30)
[2020-07-21] MEDS: PRENATAL VITAMINS W/ FOLIC ACID TABLET (FP) PO SCH (10:30)
[2020-07-21] MEDS: levETIRAcetam 500 MG TABLET (FP) PO SCH ×2 (10:30→21:00)
--- NOTE | 2020-07-21 18:00 | PN ---
Psychiatric Progress Note Vital Signs: Vital Signs Period Temp Pulse Resp BP Sys/Garcia Pulse Ox Last 24 Hr 97.9 F 92 18 153/85 96-96 Date of Session: 07/21/20 Chief Complaint:: " I want my zyprexa." HPI: Psychiatric re-evaluation is sought to honor patient's request to discuss the inclusion of olanzapine in the current medication regimen. Hospitalization continues to be benign except for the patient's insistence on getting back on zyprexa. ROS: No somatic complaints. Patient is more often observed lying in bed. He is alert and oriented (month, year, day of the week). However not able ti give exact date. Observed walking with cane. Current Medications: Active Medications Generic Name Dose Route Start Last Admin Trade Name Freq PRN Reason Stop Dose Admin Acetaminophen 650 mg 07/13/20 15:45 Tylenol - PO Q4H PRN FEVER Al Hydroxide/Mg Hydroxide 30 ml 07/13/20 15:45 Mylanta Oral Suspension - PO Q6H PRN DYSPEPSIA Albuterol Sulfate 2 puff 07/13/20 15:48 07/20/20 10:36 Ventolin Hfa Inhaler - IH 2 puff Q4H PRN Administration WHEEZING Eucalyptus/Menthol/Phenol/Sorbitol 1 each 07/13/20 15:45 Cepastat Lozenge - MM Q4H PRN SORE THROAT Guaifenesin 10 ml 07/13/20 15:45 Robitussin - PO Q6H PRN COUGH Hydroxyzine Pamoate 25 mg 07/13/20 15:45 07/14/20 07:49 Vistaril - PO 25 mg Q4HWA PRN Administration AGITATION Ibuprofen 400 mg 07/13/20 15:45 Motrin - PO Q6H PRN Pain Level 4-6 Levetiracetam 500 mg 07/13/20 22:00 07/21/20 10:30 Keppra - PO 500 mg BID KAMRON Administration Loperamide HCl 4 mg 07/13/20 15:45 Imodium - PO Q6H PRN DIARRHEA Magnesium Citrate 300 ml 07/13/20 15:45 Citroma - PO Q48H PRN CONSTIPATION Magnesium Hydroxide 30 ml 07/13/20 15:45 Milk Of Magnesia - PO DAILY PRN CONSTIPATION Melatonin 5 mg 07/13/20 22:00 07/20/20 21:43 Melatonin PO 5 mg HS KAMRON Administration Metformin HCl 500 mg 07/13/20 16:30 07/21/20 16:34 Glucophage - PO 500 mg BIDAC KAMRON Administration Methadone HCl 80 mg 07/20/20 06:00 07/21/20 06:25 Dolophine - PO 07/26/20 05:59 80 mg DAILY@0600 KAMRON Administration Mirtazapine 7.5 mg 07/18/20 22:00 07/20/20 21:43 Remeron - PO 7.5 mg HS KAMRON Administration Nicotine 7 mg 07/14/20 10:00 07/21/20 10:30 Nicoderm Patch - TD Not Given DAILY KAMRON Nicotine Polacrilex 2 mg 07/13/20 15:45 Nicorette Gum - BUC Q2H PRN NICOTINE REPLACEMENT RX Multivit/Folic Acid/Iron 1 tab 07/14/20 10:00 07/21/20 10:30 Vitamins (Sjr) - PO 1 tab DAILY KAMRON Administration Pseudoephedrine/Triprolidine 1 combo 07/13/20 15:45 Actifed - PO TID PRN NASAL CONGESTION Thiamine HCl 100 mg 07/13/20 22:00 07/20/20 21:43 Vitamin B1 - PO 100 mg HS KAMRON Administration Medication(s) Change(s): Discussed with the patient. He states that he has been on zyprexa " for many years." Corporate Services Manager made the patient aware of his diabetic condition and review the side effects of that medication. Mr Mcarthur is advised to switch to an alternate atypical but he vehemently declines. " Zyprexa never causes me any problem and this is what I want to take." Informed consent is obtained from the patient. Zyprexa is resumed at the dose of 2.5 mg po hs. Medical provider to monitor response and contact Psychiatry-Liaison as needed. Current Side Effect: No Lab tests ordered: No Lab tests reviewed: Yes Provider note:: Chart reviewed. Patient is interviewed. Mr Mcarthur is informed of risk of zyprexa (diabetes mellitus) but he insists on getting back on that medication. Patient appears cachectic. He states that " zyprexa calms me down, relaxes my nerves." He is receptive to discussion although not amenable to the proposed option of switching to an alternate atypical drug. Patient responded positively to plan to resume zyprexa : calmed down, came out of bed, spoke to chart writer and joined the evening group session. Mr Mcarthur is not psychotic. Mood is reactive. No homicidal or suicidal ideation, intent or plan. Stable mental status. Patient is at his baseline. Mental Status Exam - Mental Status Exam Alert and Oriented to: Time, Place, Person Cognitive Function: Grossly Intact Patient Appearance: Well Groomed Mood: Withdrawn, Hopeful Affect: Appropriate, Mood Congruent, Normal Range Patient Behavior: Appropriate, Cooperative Speech Pattern: Clear, Appropriate Voice Loudness: Normal Thought Process: Intact, Goal Oriented Thought Disorder: Not Present Hallucinations: Denies Suicidal Ideation: Denies Homicidal Ideation: Denies Insight/Judgement: Fair Sleep: Fair Appetite: Poor, Weight loss Gait/Station: Other (walks with a cane) Psychiatric Treatment Plan - Problem List (1) Sedative hypnotic or anxiolytic dependence Current Visit: Yes Comment: . (2) Opioid dependence on agonist therapy Current Visit: Yes Comment: . (3) Nicotine dependence Current Visit: Yes Comment: . (4) Substance induced mood disorder Current Visit: Yes Comment: . (5) History of anxiety disorder Current Visit: Yes Comment: . (6) Insomnia Current Visit: Yes Comment: . (7) Non-compliance Current Visit: Yes Comment: .Non-adherence to medications in the community.
[2020-07-21] MEDS: THIAMINE HCL 100 MG TABLET (FP) PO SCH (21:00)
[2020-07-21] MEDS: MELATONIN 5 MG TABLETS PO SCH (21:00)
[2020-07-21] MEDS ORDERED: PT OWN MED DRAWER 7, Y5N ONE (21:01)
[2020-07-21] MEDS: MIRTAZAPINE 15 MG TABLET (FP) PO SCH (21:02)
[2020-07-21] MEDS: OLANZapine 2.5 MG TABLET PO SCH (22:43)
[2020-07-22] MEDS: METHADONE HCL 40 MG DISPERSABLE TABLET PO SCH (06:32)
[2020-07-22] MEDS: metFORMIN HCL 500 MG TABLET (FP) PO SCH ×2 (06:46→17:04)
[2020-07-22] MEDS: levETIRAcetam 500 MG TABLET (FP) PO SCH ×2 (09:45→21:34)
[2020-07-22] MEDS: NICOTINE 7 MG/24 HOURS TOPICAL PATCH TD SCH (09:45)
[2020-07-22] MEDS: PRENATAL VITAMINS W/ FOLIC ACID TABLET (FP) PO SCH (09:45)
[2020-07-22] MEDS ORDERED: MASKS NR ONE (09:46)
[2020-07-22] MEDS: OLANZapine 2.5 MG TABLET PO SCH (21:34)
[2020-07-22] MEDS: MELATONIN 5 MG TABLETS PO SCH (21:34)
[2020-07-22] MEDS: THIAMINE HCL 100 MG TABLET (FP) PO SCH (21:34)
[2020-07-22] MEDS: MIRTAZAPINE 15 MG TABLET (FP) PO SCH (21:35)
[2020-07-23] MEDS: METHADONE HCL 40 MG DISPERSABLE TABLET PO SCH (06:21)
[2020-07-23] MEDS: metFORMIN HCL 500 MG TABLET (FP) PO SCH (07:04)
[2020-07-23 07:22] VITALS: BP 159/86; PULSE 77; TEMP 97.6
[2020-07-23] MEDS: levETIRAcetam 500 MG TABLET (FP) PO SCH (09:32)
[2020-07-23] MEDS: PRENATAL VITAMINS W/ FOLIC ACID TABLET (FP) PO SCH (09:32)
[2020-07-23] MEDS: NICOTINE 7 MG/24 HOURS TOPICAL PATCH TD SCH (09:33)
--- NOTE | 2020-07-23 09:46 | DS ---
[facility] Re[facility] Discharge Summary - [facility] Discharge Summary Admission Date: 07/13/20 Discharge Date: 07/23/20 - History Present History: Opioid dependence, Sedative dependence - Discharge Physical Exam Vital Signs: Vital Signs Temperature 97.6 F 07/23/20 06:15 Pulse Rate 77 07/23/20 06:15 Respiratory Rate 18 07/23/20 06:15 Blood Pressure 159/86 07/23/20 06:15 O2 Sat by Pulse Oximetry (%) 98 07/23/20 06:15 ROS: DENIES CHEST PAIN, SOB, DIZZINESS, COUGH, SHAKES, SWEATING AND OPIOD/SEDATIVE CRAVINGS PE: ALERT AND ORIENTED X 3 SKIN WARM AND DRY CAR S1S2, RRR, NO MURMURS OR GALLOPS RESP CTA B/L, NO WHEEZES OR RALES EXT FULL ROM, AMB AD BETTIE NO TREMORS DENIES SI/HI A/P: [place] [facility] [place] IS MEDICALLY STABLE FOR DISCHARGE AFTERCARE ARRANGED FOR RETURN TO [facility] - Treatment Discharge Condition: Discharge condition good, Rehabilitated safely, Responded well, Outpatient referral accepted Hospital Course: PATIENT D/C FROM REHAB TODAY FOR SEDATIVE DEPENDENCE. HE IS MEDICALLY STABLE AND DENIES SI/HI. DURING COURSE OF TREATMENT, PATIENT ATTENDED GROUP MEETINGS AND 1:1 COUNSELING SESSIONS WITH COUNSELING STAFF. AFTERCARE ARRANGED FOR PATIENT TO RETURN TO [facility]. PATIENT MEDICALLY ADVISED TO FOLLOW UP WITH PCP RECOMMENDED FOR CONTINUED MANAGEMENT OF CHRONIC CONDITIONS AND TO CONTINUE TO OTP SERVICES TO PREVENT RELAPSE. Ambulatory Orders Levetiracetam [Keppra] 500 mg PO BID 05/12/16 Methadone [Dolophine -] 80 mg PO DAILY 05/12/16 metFORMIN HCL [Metformin HCl] 500 mg PO BID 05/12/16 Albuterol Sulfate Inhaler - [Ventolin HFA Inhaler -] 2 inh PO Q4H PRN #1 inhaler 07/23/20 levETIRAcetam [Keppra -] 500 mg PO BID #30 tablet 07/23/20 metFORMIN HCL [Glucophage -] 500 mg PO BIDAC #30 tablet 07/23/20 Laboratory Tests 07/14/20 07/14/20 07/15/20 06:19 16:49 05:57 POC Glucometer 83 79 87 07/15/20 07/16/20 07/16/20 17:05 06:04 16:26 POC Glucometer 97 96 73 07/17/20 07/17/20 07/18/20 06:09 16:31 06:00 POC Glucometer 113 96 83 07/18/20 07/19/20 07/19/20 16:37 06:34 07:48 POC Glucometer 114 66 167 07/19/20 07/20/20 07/20/20 16:48 06:08 16:32 POC Glucometer 99 80 90 07/21/20 07/21/20 07/22/20 06:26 16:34 06:33 POC Glucometer 87 86 110 07/22/20 07/23/20 17:05 06:21 POC Glucometer 147 88 - Medication Discharge Medications: Ambulatory Orders Levetiracetam [Keppra] 500 mg PO BID 05/12/16 Methadone [Dolophine -] 80 mg PO DAILY 05/12/16 metFORMIN HCL [Metformin HCl] 500 mg PO BID 05/12/16 Albuterol Sulfate Inhaler - [Ventolin HFA Inhaler -] 2 inh PO Q4H PRN #1 inhaler 07/23/20 levETIRAcetam [Keppra -] 500 mg PO BID #30 tablet 07/23/20 metFORMIN HCL [Glucophage -] 500 mg PO BIDAC #30 tablet 07/23/20 - Medication-Assisted Treatment (MAT) Medication-Assisted Treatment (MAT): Yes MAT Follow-up Referral: [facility]. - Discharge Instructions Diet, activity, other medical instructions: Diet: REG TOLERATED Activity: AMB AD BETTIE TOLERATED Other medical instructions: F/U WITH PCP RECOMMENDED - Follow-up Referral Minutes to complete discharge: 35 - AMA Did Patient Leave Against Medical Advice: No
== END 2020-07-23 10:47 | disposition home or self-care (01) | DRG 772 ==
LOC: YASAS 15:35 → Y3W 15:38
PROVIDERS: ADMIT Allergy & Immunology; ATTEND Allergy & Immunology
PROC: HZ42ZZZ Group Counseling for Substance Abuse Treatment, Cognitive-Behavioral (ICD-10-PCS; principal; 2020-07-13)
DX: F13.20 Sedative, hypnotic or anxiolytic dependence, uncomplicated (principal); F11.20 Opioid dependence, uncomplicated; F17.210 Nicotine dependence, cigarettes, uncomplicated; F19.24 Other psychoactive substance dependence with psychoactive substance-induced mood disorder; F41.9 Anxiety disorder, unspecified; G47.00 Insomnia, unspecified; G40.909 Epilepsy, unspecified, not intractable, without status epilepticus; E11.9 Type 2 diabetes mellitus without complications; Z79.84 Long term (current) use of oral hypoglycemic drugs; J43.9 Emphysema, unspecified; J45.909 Unspecified asthma, uncomplicated; Z96.641 Presence of right artificial hip joint; Z87.81 Personal history of (healed) traumatic fracture; Z91.14 Patient's other noncompliance with medication regimen; Z56.0 Unemployment, unspecified; Z59.0 Homelessness
CPT/HCPCS: 82962

== ENCOUNTER 2020-10-11 15:31 | Inpatient (IN) | payer OTHER ==
[2020-10-11 18:38] VITALS: BMI 17.3
[2020-10-11] MEDS ORDERED: LORazepam 1 MG TABLET PO PRN (19:14)
[2020-10-11] MEDS ORDERED: BISMUTH SUBSALICYLATE 524 MG/30 ML UD PO PRN (19:17)
[2020-10-11] MEDS ORDERED: METHOCARBAMOL 500 MG TABLET PO PRN (19:17)
[2020-10-11] MEDS ORDERED: ONDANSETRON *ODT* 4 MG TABLET SL PRN (19:17)
[2020-10-11] MEDS ORDERED: MAGNESIUM HYDROX 2400MG/30ML ORAL SUSPENSION 30 ML CUP PO PRN (19:17)
[2020-10-11] MEDS ORDERED: MAGNESIUM CITRATE 300 ML BOTTLE PO PRN (19:17)
[2020-10-11] MEDS ORDERED: IBUPROFEN 400 MG TABLET (FP) PO PRN (19:17)
[2020-10-11] MEDS ORDERED: ACETAMINOPHEN 325 MG TABLET (FP) PO PRN ×2 (19:17)
[2020-10-11] MEDS ORDERED: NICOTINE POLACRILEX 2 MG GUM BUC PRN (19:17)
[2020-10-11] MEDS ORDERED: MAG HYDROX/AL HYDROX/SIMETH 30 ML UNIT-DOSE CUP PO PRN (19:17)
[2020-10-11] MEDS ORDERED: MENTHOL/PHENOL 1 EACH UD MM PRN (19:17)
[2020-10-11] MEDS ORDERED: metFORMIN HCL 500 MG TABLET (FP) PO SCH (22:00)
[2020-10-11] MEDS: TOLNAFTATE 1% CREAM 15 GM TUBE TP SCH (22:47)
[2020-10-11] MEDS: LORazepam 2 MG TABLET PO SCH (22:48)
[2020-10-11] MEDS: THIAMINE HCL 100 MG TABLET (FP) PO SCH (22:48)
[2020-10-12] MEDS ORDERED: METHADONE HCL 10 MG TABLET PO SCH (06:00)
[2020-10-12] MEDS: LORazepam 2 MG TABLET PO SCH ×3 (06:44→17:28)
[2020-10-12] MEDS: metFORMIN HCL 500 MG TABLET (FP) PO SCH ×2 (06:48→17:28)
[2020-10-12] MEDS: ALBUTEROL SO4 HFA INHALER IH PRN (06:49)
[2020-10-12] MEDS ORDERED: METHADONE 80 MG, METHADONE 10 MG PO ONE (09:00)
[2020-10-12] MEDS ORDERED: METHADONE HCL 10 MG TABLET ONE (09:21)
[2020-10-12] MEDS ORDERED: METHADONE HCL 40 MG DISPERSABLE TABLET ONE (09:21)
[2020-10-12] MEDS: PRENATAL VITAMINS W/ FOLIC ACID TABLET (FP) PO SCH (10:24)
[2020-10-12] MEDS: NICOTINE 14 MG/24 HOURS TOPICAL PATCH TD SCH (10:24)
[2020-10-12] MEDS: TOLNAFTATE 1% CREAM 15 GM TUBE TP SCH ×2 (10:25→22:30)
[2020-10-12 11:12] LABS: POTASSIUM 4.2 mmol/L (3.5-5.1)
[2020-10-12 11:19] LABS: ALBUMIN 2.9 g/dl (3.4-5.0); BLOOD UREA NITROGEN 22.2 mg/dL (7-18); CALCIUM 9.2 mg/dL (8.5-10.1)
[2020-10-12 11:22] LABS: CREATININE 0.9 mg/dL (0.55-1.3)
[2020-10-12 11:23] LABS: HEMATOCRIT 37.3 % (35.4-49); HEMOGLOBIN 11.5 GM/dL (11.7-16.9); MCH 25.3 pg (25.7-33.7); MEAN CELL VOLUME 81.9 fl (80-96); MEAN PLT VOLUME 10.1 fl (7.5-11.1); PLATELET COUNT 117 K/MM3 (134-434); RBC 4.55 M/mm3 (4.00-5.60); RDW 20.1 % (11.9-15.9); WHITE BLOOD COUNT 6.9 K/mm3 (4.0-10.0)
[2020-10-12 11:24] LABS: BILIRUBIN,TOTAL 0.7 mg/dL (0.2-1); TOT PROT 6.8 g/dl (6.4-8.2)
[2020-10-12] MEDS: THIAMINE HCL 100 MG TABLET (FP) PO SCH (22:29)
[2020-10-12] MEDS: MELATONIN 5 MG TABLETS PO PRN (22:31)
[2020-10-12] MEDS: LORazepam 1 MG TABLET PO SCH (22:35)
[2020-10-13] MEDS ORDERED: METHADONE HCL 10 MG TABLET ONE (04:20)
[2020-10-13] MEDS ORDERED: METHADONE HCL 40 MG DISPERSABLE TABLET ONE (04:20)
[2020-10-13] MEDS: METHADONE 80 MG, METHADONE 10 MG PO SCH (05:23)
[2020-10-13] MEDS: LORazepam 1 MG TABLET PO SCH ×4 (05:23→22:22)
[2020-10-13] MEDS: metFORMIN HCL 500 MG TABLET (FP) PO SCH ×2 (06:38→17:23)
[2020-10-13] MEDS: PRENATAL VITAMINS W/ FOLIC ACID TABLET (FP) PO SCH (11:29)
[2020-10-13] MEDS: NICOTINE 14 MG/24 HOURS TOPICAL PATCH TD SCH (11:29)
[2020-10-13] MEDS: TOLNAFTATE 1% CREAM 15 GM TUBE TP SCH ×2 (11:31→22:22)
[2020-10-13] MEDS: ALBUTEROL SO4 HFA INHALER IH PRN ×2 (12:39→17:24)
[2020-10-13] MEDS: MELATONIN 5 MG TABLETS PO PRN (22:22)
[2020-10-13] MEDS: THIAMINE HCL 100 MG TABLET (FP) PO SCH (22:22)
[2020-10-13] MEDS: levETIRAcetam 500 MG TABLET (FP) PO SCH (22:22)
[2020-10-14] MEDS ORDERED: LORazepam 0.5 MG TABLET PO PRN
[2020-10-14] MEDS ORDERED: METHADONE HCL 10 MG TABLET ONE (04:13)
[2020-10-14] MEDS ORDERED: METHADONE HCL 40 MG DISPERSABLE TABLET ONE (04:14)
[2020-10-14] MEDS: LORazepam 0.5 MG TABLET PO SCH ×4 (05:12→22:22)
[2020-10-14] MEDS: METHADONE 80 MG, METHADONE 10 MG PO SCH (05:12)
[2020-10-14] MEDS: metFORMIN HCL 500 MG TABLET (FP) PO SCH ×2 (07:13→17:21)
[2020-10-14] MEDS ORDERED: TOLNAFTATE 1% CREAM 15 GM TUBE TP PRN (10:00)
[2020-10-14] MEDS ORDERED: LOPERAMIDE HCL 2 MG CAPSULE PO ONE (10:28)
[2020-10-14] MEDS: TOLNAFTATE 1% CREAM 15 GM TUBE TP SCH (10:31)
[2020-10-14] MEDS: LISINOPRIL 10 MG TABLET PO SCH ×2 (10:59→22:23)
[2020-10-14] MEDS: levETIRAcetam 500 MG TABLET (FP) PO SCH ×2 (11:00→22:22)
[2020-10-14] MEDS: PRENATAL VITAMINS W/ FOLIC ACID TABLET (FP) PO SCH (11:00)
[2020-10-14] MEDS: NICOTINE 14 MG/24 HOURS TOPICAL PATCH TD SCH (11:01)
[2020-10-14] MEDS: THIAMINE HCL 100 MG TABLET (FP) PO SCH (22:22)
[2020-10-14] MEDS: MELATONIN 5 MG TABLETS PO PRN (22:22)
[2020-10-14] MEDS: ALBUTEROL SO4 HFA INHALER IH PRN (22:23)
[2020-10-15] MEDS ORDERED: METHADONE HCL 10 MG TABLET ONE (04:03)
[2020-10-15] MEDS ORDERED: METHADONE HCL 40 MG DISPERSABLE TABLET ONE (04:03)
[2020-10-15] MEDS ORDERED: LORazepam 0.5 MG TABLET PO ONE (05:00)
[2020-10-15] MEDS: METHADONE 80 MG, METHADONE 10 MG PO SCH (05:33)
[2020-10-15] MEDS: metFORMIN HCL 500 MG TABLET (FP) PO SCH (06:31)
[2020-10-15] MEDS: ALBUTEROL SO4 HFA INHALER IH PRN (10:11)
[2020-10-15] MEDS: LISINOPRIL 10 MG TABLET PO SCH (10:11)
[2020-10-15] MEDS: NICOTINE 14 MG/24 HOURS TOPICAL PATCH TD SCH (10:12)
[2020-10-15] MEDS: levETIRAcetam 500 MG TABLET (FP) PO SCH (10:12)
[2020-10-15] MEDS: PRENATAL VITAMINS W/ FOLIC ACID TABLET (FP) PO SCH (10:12)
[2020-10-15 13:09] VITALS: BP 130/72; PULSE 74; TEMP 97.5
== END 2020-10-15 15:25 | disposition other institution (70) | DRG 773 ==
LOC: YASAS 15:31 → Y3N 20:16
PROVIDERS: ADMIT Allergy & Immunology; ATTEND Allergy & Immunology
PROC: HZ2ZZZZ Detoxification Services for Substance Abuse Treatment (ICD-10-PCS; principal; 2020-10-11)
DX: F13.230 Sedative, hypnotic or anxiolytic dependence with withdrawal, uncomplicated (principal); F11.20 Opioid dependence, uncomplicated; F17.213 Nicotine dependence, cigarettes, with withdrawal; J45.20 Mild intermittent asthma, uncomplicated; J44.9 Chronic obstructive pulmonary disease, unspecified; B18.2 Chronic viral hepatitis C; E11.9 Type 2 diabetes mellitus without complications; R03.0 Elevated blood-pressure reading, without diagnosis of hypertension; G40.909 Epilepsy, unspecified, not intractable, without status epilepticus; R26.2 Difficulty in walking, not elsewhere classified; Z99.89 Dependence on other enabling machines and devices; Z79.84 Long term (current) use of oral hypoglycemic drugs; Z86.59 Personal history of other mental and behavioral disorders; Z59.0 Homelessness
CPT/HCPCS: 36415; 80053; 80177; 82962; 85027; 86780; C9803; U0003

== ENCOUNTER 2020-10-15 15:34 | Inpatient (IN) | payer OTHER ==
[2020-10-15] MEDS ORDERED: NICOTINE POLACRILEX 2 MG GUM BUC PRN (18:02)
[2020-10-15] MEDS ORDERED: guaiFENesin 200 MG/10 ML 10 ML UNIT-DOSE CUPS PO PRN (18:02)
[2020-10-15] MEDS ORDERED: P-EPHED 60MG/TRIPROLIDI 2.5MG TABLET PO PRN (18:02)
[2020-10-15] MEDS ORDERED: MAGNESIUM CITRATE 300 ML BOTTLE PO PRN (18:02)
[2020-10-15] MEDS ORDERED: LOPERAMIDE HCL 2 MG CAPSULE PO PRN (18:02)
[2020-10-15] MEDS ORDERED: MENTHOL/PHENOL 1 EACH UD MM PRN (18:02)
[2020-10-15] MEDS ORDERED: MAGNESIUM HYDROX 2400MG/30ML ORAL SUSPENSION 30 ML CUP PO PRN (18:02)
[2020-10-15] MEDS ORDERED: MAG HYDROX/AL HYDROX/SIMETH 30 ML UNIT-DOSE CUP PO PRN (18:02)
[2020-10-15] MEDS: THIAMINE HCL 100 MG TABLET (FP) PO SCH (21:08)
[2020-10-15] MEDS: levETIRAcetam 500 MG TABLET (FP) PO SCH (21:08)
[2020-10-15] MEDS: MELATONIN 5 MG TABLETS PO SCH (21:09)
[2020-10-15] MEDS ORDERED: hydrOXYzine PAMOATE 25 MG CAPSULE (FP) PO SCH (22:00)
[2020-10-16] MEDS ORDERED: METHADONE HCL 40 MG DISPERSABLE TABLET ONE (05:07)
[2020-10-16] MEDS ORDERED: METHADONE HCL 10 MG TABLET ONE (05:07)
[2020-10-16] MEDS ORDERED: METHADONE HCL 10 MG TABLET PO SCH (06:00)
[2020-10-16] MEDS ORDERED: METHADONE HCL 40 MG DISPERSABLE TABLET PO SCH (06:00)
[2020-10-16] MEDS: METHADONE 80 MG, METHADONE 10 MG PO SCH (06:27)
[2020-10-16] MEDS: metFORMIN HCL 500 MG TABLET (FP) PO SCH ×2 (07:38→16:43)
[2020-10-16] MEDS: levETIRAcetam 500 MG TABLET (FP) PO SCH ×2 (11:09→22:35)
[2020-10-16] MEDS: PRENATAL VITAMINS W/ FOLIC ACID TABLET (FP) PO SCH (11:09)
[2020-10-16] MEDS: NICOTINE 7 MG/24 HOURS TOPICAL PATCH TD SCH (11:10)
[2020-10-16] MEDS: IBUPROFEN 400 MG TABLET (FP) PO PRN (16:43)
[2020-10-16] MEDS: THIAMINE HCL 100 MG TABLET (FP) PO SCH (22:35)
[2020-10-16] MEDS: MELATONIN 5 MG TABLETS PO SCH (22:35)
[2020-10-17] MEDS ORDERED: METHADONE HCL 40 MG DISPERSABLE TABLET ONE (05:17)
[2020-10-17] MEDS ORDERED: METHADONE HCL 10 MG TABLET ONE (05:18)
[2020-10-17] MEDS: METHADONE 80 MG, METHADONE 10 MG PO SCH (06:12)
[2020-10-17] MEDS: metFORMIN HCL 500 MG TABLET (FP) PO SCH ×2 (07:43→16:21)
[2020-10-17] MEDS: NICOTINE 7 MG/24 HOURS TOPICAL PATCH TD SCH (09:56)
[2020-10-17] MEDS: PRENATAL VITAMINS W/ FOLIC ACID TABLET (FP) PO SCH (09:56)
[2020-10-17] MEDS: levETIRAcetam 500 MG TABLET (FP) PO SCH ×2 (09:56→21:36)
[2020-10-17] MEDS: ACETAMINOPHEN 325 MG TABLET (FP) PO PRN (10:28)
[2020-10-17] MEDS: MELATONIN 5 MG TABLETS PO SCH (21:36)
[2020-10-17] MEDS: THIAMINE HCL 100 MG TABLET (FP) PO SCH (21:36)
[2020-10-18] MEDS ORDERED: METHADONE HCL 40 MG DISPERSABLE TABLET ONE (04:42)
[2020-10-18] MEDS ORDERED: METHADONE HCL 10 MG TABLET ONE (04:43)
[2020-10-18] MEDS: METHADONE 80 MG, METHADONE 10 MG PO SCH (05:59)
[2020-10-18] MEDS: metFORMIN HCL 500 MG TABLET (FP) PO SCH ×2 (06:00→16:24)
[2020-10-18] MEDS: PRENATAL VITAMINS W/ FOLIC ACID TABLET (FP) PO SCH (10:28)
[2020-10-18] MEDS: levETIRAcetam 500 MG TABLET (FP) PO SCH ×2 (10:28→21:07)
[2020-10-18] MEDS: NICOTINE 7 MG/24 HOURS TOPICAL PATCH TD SCH (10:28)
[2020-10-18] MEDS: ALBUTEROL SO4 HFA INHALER IH PRN (10:29)
[2020-10-18] MEDS: ACETAMINOPHEN 325 MG TABLET (FP) PO PRN (15:44)
[2020-10-18] MEDS: THIAMINE HCL 100 MG TABLET (FP) PO SCH (21:07)
[2020-10-18] MEDS: MELATONIN 5 MG TABLETS PO SCH (21:07)
[2020-10-19] MEDS ORDERED: METHADONE HCL 40 MG DISPERSABLE TABLET ONE (05:36)
[2020-10-19] MEDS ORDERED: METHADONE HCL 10 MG TABLET ONE (05:37)
[2020-10-19] MEDS: METHADONE 80 MG, METHADONE 10 MG PO SCH (06:05)
[2020-10-19] MEDS: metFORMIN HCL 500 MG TABLET (FP) PO SCH ×2 (06:21→16:25)
[2020-10-19] MEDS: ALBUTEROL SO4 HFA INHALER IH PRN (07:57)
[2020-10-19] MEDS: PRENATAL VITAMINS W/ FOLIC ACID TABLET (FP) PO SCH (09:10)
[2020-10-19] MEDS: levETIRAcetam 500 MG TABLET (FP) PO SCH ×2 (09:10→21:01)
[2020-10-19] MEDS: ACETAMINOPHEN 325 MG TABLET (FP) PO PRN (09:10)
[2020-10-19] MEDS: NICOTINE 7 MG/24 HOURS TOPICAL PATCH TD SCH (10:34)
[2020-10-19] MEDS: THIAMINE HCL 100 MG TABLET (FP) PO SCH (21:00)
[2020-10-19] MEDS: IBUPROFEN 400 MG TABLET (FP) PO PRN (21:00)
[2020-10-19] MEDS: MELATONIN 5 MG TABLETS PO SCH (21:01)
[2020-10-20] MEDS ORDERED: METHADONE HCL 40 MG DISPERSABLE TABLET ONE (05:42)
[2020-10-20] MEDS ORDERED: METHADONE HCL 10 MG TABLET ONE (05:43)
[2020-10-20] MEDS: METHADONE 80 MG, METHADONE 10 MG PO SCH (05:59)
[2020-10-20] MEDS: metFORMIN HCL 500 MG TABLET (FP) PO SCH ×2 (07:26→17:20)
[2020-10-20] MEDS: levETIRAcetam 500 MG TABLET (FP) PO SCH ×2 (10:01→22:07)
[2020-10-20] MEDS: NICOTINE 7 MG/24 HOURS TOPICAL PATCH TD SCH (10:01)
[2020-10-20] MEDS: PRENATAL VITAMINS W/ FOLIC ACID TABLET (FP) PO SCH (10:01)
[2020-10-20] MEDS: ACETAMINOPHEN 325 MG TABLET (FP) PO PRN ×2 (12:44→20:44)
[2020-10-20] MEDS: MELATONIN 5 MG TABLETS PO SCH (22:07)
[2020-10-20] MEDS: THIAMINE HCL 100 MG TABLET (FP) PO SCH (22:07)
[2020-10-21] MEDS ORDERED: METHADONE HCL 40 MG DISPERSABLE TABLET ONE (05:40)
[2020-10-21] MEDS ORDERED: METHADONE HCL 10 MG TABLET ONE (05:40)
[2020-10-21] MEDS: METHADONE 80 MG, METHADONE 10 MG PO SCH (06:01)
[2020-10-21] MEDS: metFORMIN HCL 500 MG TABLET (FP) PO SCH ×2 (06:56→17:08)
[2020-10-21] MEDS: ACETAMINOPHEN 325 MG TABLET (FP) PO PRN ×2 (07:52→21:02)
[2020-10-21] MEDS: PRENATAL VITAMINS W/ FOLIC ACID TABLET (FP) PO SCH (10:16)
[2020-10-21] MEDS: levETIRAcetam 500 MG TABLET (FP) PO SCH ×2 (10:16→21:01)
[2020-10-21] MEDS: NICOTINE 7 MG/24 HOURS TOPICAL PATCH TD SCH (10:16)
[2020-10-21] MEDS: THIAMINE HCL 100 MG TABLET (FP) PO SCH (21:01)
[2020-10-21] MEDS: MELATONIN 5 MG TABLETS PO SCH (21:01)
[2020-10-22] MEDS ORDERED: METHADONE HCL 10 MG TABLET ONE (05:54)
[2020-10-22] MEDS ORDERED: METHADONE HCL 40 MG DISPERSABLE TABLET ONE (05:54)
[2020-10-22] MEDS ORDERED: METHADONE HCL 10 MG TABLET PO SCH (06:00)
[2020-10-22] MEDS: METHADONE 80 MG, METHADONE 10 MG PO SCH (06:06)
[2020-10-22] MEDS: metFORMIN HCL 500 MG TABLET (FP) PO SCH ×2 (06:08→16:45)
[2020-10-22] MEDS: ACETAMINOPHEN 325 MG TABLET (FP) PO PRN ×2 (07:55→21:02)
[2020-10-22] MEDS: PRENATAL VITAMINS W/ FOLIC ACID TABLET (FP) PO SCH (09:34)
[2020-10-22] MEDS: levETIRAcetam 500 MG TABLET (FP) PO SCH ×2 (09:35→21:01)
[2020-10-22] MEDS: NICOTINE 7 MG/24 HOURS TOPICAL PATCH TD SCH (09:35)
[2020-10-22] MEDS: THIAMINE HCL 100 MG TABLET (FP) PO SCH (21:01)
[2020-10-22] MEDS: MELATONIN 5 MG TABLETS PO SCH (21:01)
[2020-10-23] MEDS ORDERED: METHADONE HCL 40 MG DISPERSABLE TABLET ONE (03:30)
[2020-10-23] MEDS ORDERED: METHADONE HCL 10 MG TABLET ONE (03:31)
[2020-10-23] MEDS: METHADONE 80 MG, METHADONE 10 MG PO SCH (06:17)
[2020-10-23] MEDS: metFORMIN HCL 500 MG TABLET (FP) PO SCH ×2 (06:18→16:26)
[2020-10-23] MEDS: ACETAMINOPHEN 325 MG TABLET (FP) PO PRN ×2 (07:23→21:04)
[2020-10-23] MEDS: PRENATAL VITAMINS W/ FOLIC ACID TABLET (FP) PO SCH (09:54)
[2020-10-23] MEDS: levETIRAcetam 500 MG TABLET (FP) PO SCH ×2 (09:54→21:04)
[2020-10-23] MEDS: NICOTINE 7 MG/24 HOURS TOPICAL PATCH TD SCH (09:54)
[2020-10-23] MEDS: ALBUTEROL SO4 HFA INHALER IH PRN (09:55)
[2020-10-23] MEDS: IBUPROFEN 400 MG TABLET (FP) PO PRN (18:37)
[2020-10-23] MEDS: THIAMINE HCL 100 MG TABLET (FP) PO SCH (21:04)
[2020-10-23] MEDS: MELATONIN 5 MG TABLETS PO SCH (21:04)
[2020-10-24] MEDS ORDERED: METHADONE HCL 40 MG DISPERSABLE TABLET ONE (06:14)
[2020-10-24] MEDS ORDERED: METHADONE HCL 10 MG TABLET ONE (06:14)
[2020-10-24] MEDS: metFORMIN HCL 500 MG TABLET (FP) PO SCH ×2 (06:15→16:44)
[2020-10-24] MEDS: METHADONE 80 MG, METHADONE 10 MG PO SCH (06:15)
[2020-10-24] MEDS: ACETAMINOPHEN 325 MG TABLET (FP) PO PRN ×3 (06:17→21:00)
[2020-10-24] MEDS: NICOTINE 7 MG/24 HOURS TOPICAL PATCH TD SCH (09:45)
[2020-10-24] MEDS: PRENATAL VITAMINS W/ FOLIC ACID TABLET (FP) PO SCH (09:45)
[2020-10-24] MEDS: levETIRAcetam 500 MG TABLET (FP) PO SCH ×2 (09:45→21:00)
[2020-10-24] MEDS: ALBUTEROL SO4 HFA INHALER IH PRN (09:46)
[2020-10-24] MEDS: DONEPEZIL HCL 5 MG TABLET (FP) PO SCH (14:59)
[2020-10-24] MEDS: OLANZapine 7.5 MG TABLET PO SCH (21:00)
[2020-10-24] MEDS: MELATONIN 5 MG TABLETS PO SCH (21:00)
[2020-10-24] MEDS: MIRTAZAPINE 30 MG TABLET PO SCH (21:00)
[2020-10-24] MEDS: THIAMINE HCL 100 MG TABLET (FP) PO SCH (21:00)
[2020-10-25] MEDS ORDERED: METHADONE HCL 10 MG TABLET ONE (03:17)
[2020-10-25] MEDS ORDERED: METHADONE HCL 40 MG DISPERSABLE TABLET ONE (03:17)
[2020-10-25] MEDS: METHADONE 80 MG, METHADONE 10 MG PO SCH (06:15)
[2020-10-25] MEDS: metFORMIN HCL 500 MG TABLET (FP) PO SCH ×2 (07:55→17:07)
[2020-10-25] MEDS: DONEPEZIL HCL 5 MG TABLET (FP) PO SCH (09:42)
[2020-10-25] MEDS: hydrOXYzine PAMOATE 25 MG CAPSULE (FP) PO PRN (09:42)
[2020-10-25] MEDS: levETIRAcetam 500 MG TABLET (FP) PO SCH ×2 (09:42→21:45)
[2020-10-25] MEDS: ACETAMINOPHEN 325 MG TABLET (FP) PO PRN ×2 (09:43→17:07)
[2020-10-25] MEDS: ALBUTEROL SO4 HFA INHALER IH PRN (09:44)
[2020-10-25] MEDS: PRENATAL VITAMINS W/ FOLIC ACID TABLET (FP) PO SCH (10:07)
[2020-10-25] MEDS: NICOTINE 7 MG/24 HOURS TOPICAL PATCH TD SCH (10:07)
[2020-10-25] MEDS ORDERED: MASKS NR ONE (11:04)
[2020-10-25] MEDS: CYPROHEPTADINE HCL 4 MG TABLET PO SCH ×2 (11:30→17:08)
[2020-10-25] MEDS: THIAMINE HCL 100 MG TABLET (FP) PO SCH (21:45)
[2020-10-25] MEDS: MIRTAZAPINE 30 MG TABLET PO SCH (21:45)
[2020-10-25] MEDS: OLANZapine 7.5 MG TABLET PO SCH (21:45)
[2020-10-25] MEDS: MELATONIN 5 MG TABLETS PO SCH (21:45)
[2020-10-26] MEDS ORDERED: METHADONE HCL 10 MG TABLET ONE (03:44)
[2020-10-26] MEDS ORDERED: METHADONE HCL 40 MG DISPERSABLE TABLET ONE (03:44)
[2020-10-26] MEDS: METHADONE 80 MG, METHADONE 10 MG PO SCH (06:40)
[2020-10-26] MEDS: CYPROHEPTADINE HCL 4 MG TABLET PO SCH ×3 (06:40→16:46)
[2020-10-26] MEDS: metFORMIN HCL 500 MG TABLET (FP) PO SCH ×2 (06:41→16:46)
[2020-10-26] MEDS: ACETAMINOPHEN 325 MG TABLET (FP) PO PRN ×3 (07:29→21:34)
[2020-10-26] MEDS: DONEPEZIL HCL 5 MG TABLET (FP) PO SCH (10:17)
[2020-10-26] MEDS: levETIRAcetam 500 MG TABLET (FP) PO SCH ×2 (10:18→21:33)
[2020-10-26] MEDS: PRENATAL VITAMINS W/ FOLIC ACID TABLET (FP) PO SCH (10:18)
[2020-10-26] MEDS: NICOTINE 7 MG/24 HOURS TOPICAL PATCH TD SCH (10:18)
[2020-10-26] MEDS: IBUPROFEN 400 MG TABLET (FP) PO PRN (10:20)
[2020-10-26] MEDS: OLANZapine 7.5 MG TABLET PO SCH (21:33)
[2020-10-26] MEDS: MELATONIN 5 MG TABLETS PO SCH (21:33)
[2020-10-26] MEDS: THIAMINE HCL 100 MG TABLET (FP) PO SCH (21:33)
[2020-10-26] MEDS: MIRTAZAPINE 30 MG TABLET PO SCH (21:34)
[2020-10-27] MEDS ORDERED: METHADONE HCL 40 MG DISPERSABLE TABLET ONE (03:16)
[2020-10-27] MEDS ORDERED: METHADONE HCL 10 MG TABLET ONE (03:16)
[2020-10-27] MEDS: METHADONE 80 MG, METHADONE 10 MG PO SCH (06:15)
[2020-10-27] MEDS: CYPROHEPTADINE HCL 4 MG TABLET PO SCH ×3 (06:16→16:45)
[2020-10-27] MEDS: metFORMIN HCL 500 MG TABLET (FP) PO SCH ×2 (06:17→16:45)
[2020-10-27] MEDS: ACETAMINOPHEN 325 MG TABLET (FP) PO PRN ×2 (07:35→21:06)
[2020-10-27] MEDS: DONEPEZIL HCL 5 MG TABLET (FP) PO SCH (09:50)
[2020-10-27] MEDS: NICOTINE 7 MG/24 HOURS TOPICAL PATCH TD SCH (09:50)
[2020-10-27] MEDS: levETIRAcetam 500 MG TABLET (FP) PO SCH ×2 (09:50→21:05)
[2020-10-27] MEDS: PRENATAL VITAMINS W/ FOLIC ACID TABLET (FP) PO SCH (09:51)
[2020-10-27] MEDS: ALBUTEROL SO4 HFA INHALER IH PRN (09:51)
[2020-10-27] MEDS: MELATONIN 5 MG TABLETS PO SCH (21:05)
[2020-10-27] MEDS: THIAMINE HCL 100 MG TABLET (FP) PO SCH (21:05)
[2020-10-27] MEDS: MIRTAZAPINE 30 MG TABLET PO SCH (21:05)
[2020-10-27] MEDS: OLANZapine 7.5 MG TABLET PO SCH (21:05)
[2020-10-28] MEDS ORDERED: METHADONE HCL 10 MG TABLET ONE (03:45)
[2020-10-28] MEDS ORDERED: METHADONE HCL 40 MG DISPERSABLE TABLET ONE (03:45)
[2020-10-28] MEDS: CYPROHEPTADINE HCL 4 MG TABLET PO SCH ×3 (06:16→16:37)
[2020-10-28] MEDS: METHADONE 80 MG, METHADONE 10 MG PO SCH (06:16)
[2020-10-28] MEDS: metFORMIN HCL 500 MG TABLET (FP) PO SCH ×2 (06:17→16:36)
[2020-10-28] MEDS: ACETAMINOPHEN 325 MG TABLET (FP) PO PRN ×2 (09:24→21:35)
[2020-10-28] MEDS: PRENATAL VITAMINS W/ FOLIC ACID TABLET (FP) PO SCH (09:24)
[2020-10-28] MEDS: DONEPEZIL HCL 5 MG TABLET (FP) PO SCH (09:25)
[2020-10-28] MEDS: levETIRAcetam 500 MG TABLET (FP) PO SCH ×2 (09:25→21:34)
[2020-10-28] MEDS: NICOTINE 7 MG/24 HOURS TOPICAL PATCH TD SCH (09:26)
[2020-10-28] MEDS: THIAMINE HCL 100 MG TABLET (FP) PO SCH (21:34)
[2020-10-28] MEDS: MELATONIN 5 MG TABLETS PO SCH (21:34)
[2020-10-28] MEDS: MIRTAZAPINE 30 MG TABLET PO SCH (21:34)
[2020-10-28] MEDS: OLANZapine 7.5 MG TABLET PO SCH (21:34)
[2020-10-29] MEDS ORDERED: METHADONE HCL 10 MG TABLET ONE (05:10)
[2020-10-29] MEDS ORDERED: METHADONE HCL 40 MG DISPERSABLE TABLET ONE (05:10)
[2020-10-29] MEDS: CYPROHEPTADINE HCL 4 MG TABLET PO SCH ×3 (06:29→16:39)
[2020-10-29] MEDS: METHADONE 80 MG, METHADONE 10 MG PO SCH (06:29)
[2020-10-29] MEDS: metFORMIN HCL 500 MG TABLET (FP) PO SCH ×2 (06:29→16:39)
[2020-10-29] MEDS: PRENATAL VITAMINS W/ FOLIC ACID TABLET (FP) PO SCH (09:03)
[2020-10-29] MEDS: hydrOXYzine PAMOATE 25 MG CAPSULE (FP) PO PRN (09:03)
[2020-10-29] MEDS: ACETAMINOPHEN 325 MG TABLET (FP) PO PRN ×2 (09:03→21:05)
[2020-10-29] MEDS: levETIRAcetam 500 MG TABLET (FP) PO SCH ×2 (09:03→21:04)
[2020-10-29] MEDS: DONEPEZIL HCL 5 MG TABLET (FP) PO SCH (09:05)
[2020-10-29] MEDS: ALBUTEROL SO4 HFA INHALER IH PRN (09:05)
[2020-10-29] MEDS: NICOTINE 7 MG/24 HOURS TOPICAL PATCH TD SCH (09:06)
[2020-10-29] MEDS: THIAMINE HCL 100 MG TABLET (FP) PO SCH (21:04)
[2020-10-29] MEDS: MIRTAZAPINE 30 MG TABLET PO SCH (21:04)
[2020-10-29] MEDS: MELATONIN 5 MG TABLETS PO SCH (21:05)
[2020-10-29] MEDS: OLANZapine 7.5 MG TABLET PO SCH (21:05)
[2020-10-30] MEDS ORDERED: METHADONE HCL 40 MG DISPERSABLE TABLET ONE (04:22)
[2020-10-30] MEDS ORDERED: METHADONE HCL 10 MG TABLET ONE (04:23)
[2020-10-30] MEDS: METHADONE 80 MG, METHADONE 10 MG PO SCH (06:15)
[2020-10-30] MEDS: metFORMIN HCL 500 MG TABLET (FP) PO SCH ×2 (06:15→16:43)
[2020-10-30] MEDS: CYPROHEPTADINE HCL 4 MG TABLET PO SCH ×3 (06:15→16:43)
[2020-10-30] MEDS: ALBUTEROL SO4 HFA INHALER IH PRN (07:26)
[2020-10-30] MEDS: ACETAMINOPHEN 325 MG TABLET (FP) PO PRN ×3 (07:27→21:39)
[2020-10-30] MEDS: NICOTINE 7 MG/24 HOURS TOPICAL PATCH TD SCH (09:22)
[2020-10-30] MEDS: DONEPEZIL HCL 5 MG TABLET (FP) PO SCH (09:22)
[2020-10-30] MEDS: PRENATAL VITAMINS W/ FOLIC ACID TABLET (FP) PO SCH (09:22)
[2020-10-30] MEDS: hydrOXYzine PAMOATE 25 MG CAPSULE (FP) PO PRN (09:22)
[2020-10-30] MEDS: levETIRAcetam 500 MG TABLET (FP) PO SCH ×2 (09:22→21:37)
[2020-10-30] MEDS ORDERED: PT OWN MED DRAWER 7, Y5N ONE (16:34)
[2020-10-30] MEDS: MIRTAZAPINE 30 MG TABLET PO SCH (21:37)
[2020-10-30] MEDS: MELATONIN 5 MG TABLETS PO SCH (21:38)
[2020-10-30] MEDS: THIAMINE HCL 100 MG TABLET (FP) PO SCH (21:38)
[2020-10-30] MEDS: OLANZapine 7.5 MG TABLET PO SCH (21:38)
[2020-10-31] MEDS ORDERED: METHADONE HCL 10 MG TABLET ONE (05:47)
[2020-10-31] MEDS ORDERED: METHADONE HCL 40 MG DISPERSABLE TABLET ONE (05:47)
[2020-10-31] MEDS: METHADONE 80 MG, METHADONE 10 MG PO SCH (05:54)
[2020-10-31] MEDS: ACETAMINOPHEN 325 MG TABLET (FP) PO PRN ×2 (06:54→12:24)
[2020-10-31] MEDS: CYPROHEPTADINE HCL 4 MG TABLET PO SCH ×3 (07:23→16:38)
[2020-10-31] MEDS: metFORMIN HCL 500 MG TABLET (FP) PO SCH ×2 (07:23→16:38)
[2020-10-31] MEDS: DONEPEZIL HCL 5 MG TABLET (FP) PO SCH (10:27)
[2020-10-31] MEDS: hydrOXYzine PAMOATE 25 MG CAPSULE (FP) PO PRN (10:27)
[2020-10-31] MEDS: PRENATAL VITAMINS W/ FOLIC ACID TABLET (FP) PO SCH (10:27)
[2020-10-31] MEDS: levETIRAcetam 500 MG TABLET (FP) PO SCH ×2 (10:27→21:00)
[2020-10-31] MEDS: NICOTINE 7 MG/24 HOURS TOPICAL PATCH TD SCH (10:28)
[2020-10-31] MEDS: OLANZapine 7.5 MG TABLET PO SCH (21:00)
[2020-10-31] MEDS: MELATONIN 5 MG TABLETS PO SCH (21:00)
[2020-10-31] MEDS: MIRTAZAPINE 30 MG TABLET PO SCH (21:00)
[2020-10-31] MEDS: THIAMINE HCL 100 MG TABLET (FP) PO SCH (21:00)
[2020-11-01] MEDS ORDERED: METHADONE HCL 10 MG TABLET ONE (04:46)
[2020-11-01] MEDS ORDERED: METHADONE HCL 40 MG DISPERSABLE TABLET ONE (04:46)
[2020-11-01] MEDS: METHADONE 80 MG, METHADONE 10 MG PO SCH (06:33)
[2020-11-01] MEDS: metFORMIN HCL 500 MG TABLET (FP) PO SCH ×2 (06:46→16:53)
[2020-11-01] MEDS: CYPROHEPTADINE HCL 4 MG TABLET PO SCH ×3 (06:46→16:53)
[2020-11-01] MEDS: ACETAMINOPHEN 325 MG TABLET (FP) PO PRN ×3 (08:11→21:18)
[2020-11-01] MEDS: ALBUTEROL SO4 HFA INHALER IH PRN (08:11)
[2020-11-01] MEDS: PRENATAL VITAMINS W/ FOLIC ACID TABLET (FP) PO SCH (09:59)
[2020-11-01] MEDS: DONEPEZIL HCL 5 MG TABLET (FP) PO SCH (09:59)
[2020-11-01] MEDS: hydrOXYzine PAMOATE 25 MG CAPSULE (FP) PO PRN (09:59)
[2020-11-01] MEDS: levETIRAcetam 500 MG TABLET (FP) PO SCH ×2 (09:59→21:18)
[2020-11-01] MEDS: NICOTINE 7 MG/24 HOURS TOPICAL PATCH TD SCH (09:59)
[2020-11-01] MEDS: IBUPROFEN 400 MG TABLET (FP) PO PRN (10:00)
[2020-11-01] MEDS ORDERED: PT OWN MED DRAWER 7, Y5N ONE (16:54)
[2020-11-01] MEDS: MIRTAZAPINE 30 MG TABLET PO SCH (21:18)
[2020-11-01] MEDS: THIAMINE HCL 100 MG TABLET (FP) PO SCH (21:18)
[2020-11-01] MEDS: MELATONIN 5 MG TABLETS PO SCH (21:18)
[2020-11-01] MEDS: OLANZapine 7.5 MG TABLET PO SCH (21:18)
[2020-11-02] MEDS ORDERED: METHADONE HCL 40 MG DISPERSABLE TABLET ONE (05:39)
[2020-11-02] MEDS ORDERED: METHADONE HCL 10 MG TABLET ONE (05:40)
[2020-11-02] MEDS: METHADONE 80 MG, METHADONE 10 MG PO SCH (05:54)
[2020-11-02] MEDS: ACETAMINOPHEN 325 MG TABLET (FP) PO PRN ×3 (06:40→21:07)
[2020-11-02] MEDS: CYPROHEPTADINE HCL 4 MG TABLET PO SCH ×3 (06:42→16:49)
[2020-11-02] MEDS: metFORMIN HCL 500 MG TABLET (FP) PO SCH ×2 (06:42→16:49)
[2020-11-02] MEDS: PRENATAL VITAMINS W/ FOLIC ACID TABLET (FP) PO SCH (10:00)
[2020-11-02] MEDS: DONEPEZIL HCL 5 MG TABLET (FP) PO SCH (10:00)
[2020-11-02] MEDS: levETIRAcetam 500 MG TABLET (FP) PO SCH ×2 (10:01→21:06)
[2020-11-02] MEDS: ALBUTEROL SO4 HFA INHALER IH PRN (10:02)
[2020-11-02] MEDS: NICOTINE 7 MG/24 HOURS TOPICAL PATCH TD SCH (10:05)
[2020-11-02] MEDS ORDERED: PT OWN MED DRAWER 7, Y5N ONE (19:36)
[2020-11-02] MEDS: OLANZapine 7.5 MG TABLET PO SCH (21:06)
[2020-11-02] MEDS: MELATONIN 5 MG TABLETS PO SCH (21:06)
[2020-11-02] MEDS: THIAMINE HCL 100 MG TABLET (FP) PO SCH (21:06)
[2020-11-02] MEDS: MIRTAZAPINE 30 MG TABLET PO SCH (21:06)
[2020-11-03] MEDS ORDERED: METHADONE HCL 40 MG DISPERSABLE TABLET ONE (05:42)
[2020-11-03] MEDS ORDERED: METHADONE HCL 10 MG TABLET ONE (05:43)
[2020-11-03] MEDS: ACETAMINOPHEN 325 MG TABLET (FP) PO PRN ×2 (05:58→21:32)
[2020-11-03] MEDS: METHADONE 80 MG, METHADONE 10 MG PO SCH (05:58)
[2020-11-03] MEDS: metFORMIN HCL 500 MG TABLET (FP) PO SCH ×2 (07:03→16:44)
[2020-11-03] MEDS: CYPROHEPTADINE HCL 4 MG TABLET PO SCH ×3 (07:03→16:44)
[2020-11-03] MEDS ORDERED: MASKS NR ONE (08:10)
[2020-11-03] MEDS: hydrOXYzine PAMOATE 25 MG CAPSULE (FP) PO PRN (09:54)
[2020-11-03] MEDS: DONEPEZIL HCL 5 MG TABLET (FP) PO SCH (09:54)
[2020-11-03] MEDS: levETIRAcetam 500 MG TABLET (FP) PO SCH ×2 (09:55→21:30)
[2020-11-03] MEDS: NICOTINE 7 MG/24 HOURS TOPICAL PATCH TD SCH (09:55)
[2020-11-03] MEDS: PRENATAL VITAMINS W/ FOLIC ACID TABLET (FP) PO SCH (09:55)
[2020-11-03] MEDS: ALBUTEROL SO4 HFA INHALER IH PRN (09:56)
[2020-11-03] MEDS ORDERED: PT OWN MED DRAWER 7, Y5N ONE (19:10)
[2020-11-03] MEDS: MIRTAZAPINE 30 MG TABLET PO SCH (21:30)
[2020-11-03] MEDS: OLANZapine 7.5 MG TABLET PO SCH (21:30)
[2020-11-03] MEDS: THIAMINE HCL 100 MG TABLET (FP) PO SCH (21:31)
[2020-11-03] MEDS: MELATONIN 5 MG TABLETS PO SCH (21:31)
[2020-11-04] MEDS ORDERED: METHADONE HCL 40 MG DISPERSABLE TABLET ONE (05:39)
[2020-11-04] MEDS ORDERED: METHADONE HCL 10 MG TABLET ONE (05:40)
[2020-11-04] MEDS: ACETAMINOPHEN 325 MG TABLET (FP) PO PRN ×2 (06:14→21:03)
[2020-11-04] MEDS: METHADONE 80 MG, METHADONE 10 MG PO SCH (06:15)
[2020-11-04] MEDS: metFORMIN HCL 500 MG TABLET (FP) PO SCH ×2 (06:47→16:37)
[2020-11-04] MEDS: CYPROHEPTADINE HCL 4 MG TABLET PO SCH ×3 (06:47→16:37)
[2020-11-04] MEDS: levETIRAcetam 500 MG TABLET (FP) PO SCH ×2 (09:46→21:03)
[2020-11-04] MEDS: DONEPEZIL HCL 5 MG TABLET (FP) PO SCH (09:46)
[2020-11-04] MEDS: PRENATAL VITAMINS W/ FOLIC ACID TABLET (FP) PO SCH (09:46)
[2020-11-04] MEDS: ALBUTEROL SO4 HFA INHALER IH PRN (09:47)
[2020-11-04] MEDS: NICOTINE 7 MG/24 HOURS TOPICAL PATCH TD SCH (09:47)
[2020-11-04] MEDS ORDERED: PT OWN MED DRAWER 7, Y5N ONE (18:41)
[2020-11-04] MEDS: OLANZapine 7.5 MG TABLET PO SCH (21:02)
[2020-11-04] MEDS: MIRTAZAPINE 30 MG TABLET PO SCH (21:03)
[2020-11-04] MEDS: THIAMINE HCL 100 MG TABLET (FP) PO SCH (21:04)
[2020-11-04] MEDS: MELATONIN 5 MG TABLETS PO SCH (21:04)
[2020-11-05] MEDS ORDERED: METHADONE HCL 10 MG TABLET ONE (03:32)
[2020-11-05] MEDS ORDERED: METHADONE HCL 40 MG DISPERSABLE TABLET ONE (03:32)
[2020-11-05] MEDS: METHADONE 80 MG, METHADONE 10 MG PO SCH (06:08)
[2020-11-05] MEDS: CYPROHEPTADINE HCL 4 MG TABLET PO SCH ×3 (06:08→16:35)
[2020-11-05] MEDS: metFORMIN HCL 500 MG TABLET (FP) PO SCH ×2 (06:09→16:35)
[2020-11-05] MEDS: ACETAMINOPHEN 325 MG TABLET (FP) PO PRN ×2 (08:39→21:29)
[2020-11-05] MEDS: DONEPEZIL HCL 5 MG TABLET (FP) PO SCH (09:37)
[2020-11-05] MEDS: PRENATAL VITAMINS W/ FOLIC ACID TABLET (FP) PO SCH (09:37)
[2020-11-05] MEDS: levETIRAcetam 500 MG TABLET (FP) PO SCH ×2 (09:38→21:28)
[2020-11-05] MEDS: ALBUTEROL SO4 HFA INHALER IH PRN ×2 (09:39→22:29)
[2020-11-05] MEDS: NICOTINE 7 MG/24 HOURS TOPICAL PATCH TD SCH (10:02)
[2020-11-05] MEDS: MELATONIN 5 MG TABLETS PO SCH (21:28)
[2020-11-05] MEDS: THIAMINE HCL 100 MG TABLET (FP) PO SCH (21:28)
[2020-11-05] MEDS: OLANZapine 7.5 MG TABLET PO SCH (21:29)
[2020-11-05] MEDS: MIRTAZAPINE 30 MG TABLET PO SCH (21:29)
[2020-11-06] MEDS ORDERED: METHADONE HCL 40 MG DISPERSABLE TABLET ONE (05:38)
[2020-11-06] MEDS ORDERED: METHADONE HCL 10 MG TABLET ONE (05:39)
[2020-11-06] MEDS: ACETAMINOPHEN 325 MG TABLET (FP) PO PRN ×3 (05:49→21:21)
[2020-11-06] MEDS: METHADONE 80 MG, METHADONE 10 MG PO SCH (05:50)
[2020-11-06] MEDS: metFORMIN HCL 500 MG TABLET (FP) PO SCH ×2 (06:46→16:42)
[2020-11-06] MEDS: CYPROHEPTADINE HCL 4 MG TABLET PO SCH ×3 (06:46→16:42)
[2020-11-06] MEDS: ALBUTEROL SO4 HFA INHALER IH PRN (08:12)
[2020-11-06] MEDS ORDERED: PT OWN MED DRAWER 7, Y5N ONE ×2 (09:15→18:38)
[2020-11-06] MEDS: DONEPEZIL HCL 5 MG TABLET (FP) PO SCH (09:41)
[2020-11-06] MEDS: NICOTINE 7 MG/24 HOURS TOPICAL PATCH TD SCH (09:41)
[2020-11-06] MEDS: levETIRAcetam 500 MG TABLET (FP) PO SCH ×2 (09:42→21:20)
[2020-11-06] MEDS: PRENATAL VITAMINS W/ FOLIC ACID TABLET (FP) PO SCH (09:43)
[2020-11-06] MEDS: MELATONIN 5 MG TABLETS PO SCH (21:20)
[2020-11-06] MEDS: MIRTAZAPINE 30 MG TABLET PO SCH (21:20)
[2020-11-06] MEDS: OLANZapine 7.5 MG TABLET PO SCH (21:20)
[2020-11-06] MEDS: THIAMINE HCL 100 MG TABLET (FP) PO SCH (21:20)
[2020-11-07] MEDS ORDERED: METHADONE HCL 10 MG TABLET ONE (04:48)
[2020-11-07] MEDS ORDERED: METHADONE HCL 40 MG DISPERSABLE TABLET ONE (04:48)
[2020-11-07] MEDS: ACETAMINOPHEN 325 MG TABLET (FP) PO PRN ×3 (06:10→21:04)
[2020-11-07] MEDS: METHADONE 80 MG, METHADONE 10 MG PO SCH (06:11)
[2020-11-07] MEDS: metFORMIN HCL 500 MG TABLET (FP) PO SCH ×2 (06:52→16:33)
[2020-11-07] MEDS: CYPROHEPTADINE HCL 4 MG TABLET PO SCH ×3 (06:52→16:33)
[2020-11-07] MEDS ORDERED: PT OWN MED DRAWER 7, Y5N ONE ×2 (09:25→18:58)
[2020-11-07] MEDS: NICOTINE 7 MG/24 HOURS TOPICAL PATCH TD SCH (09:32)
[2020-11-07] MEDS: DONEPEZIL HCL 5 MG TABLET (FP) PO SCH (09:32)
[2020-11-07] MEDS: PRENATAL VITAMINS W/ FOLIC ACID TABLET (FP) PO SCH (09:33)
[2020-11-07] MEDS: ALBUTEROL SO4 HFA INHALER IH PRN (09:33)
[2020-11-07] MEDS: levETIRAcetam 500 MG TABLET (FP) PO SCH ×2 (09:33→21:04)
[2020-11-07] MEDS: OLANZapine 7.5 MG TABLET PO SCH (21:03)
[2020-11-07] MEDS: MELATONIN 5 MG TABLETS PO SCH (21:03)
[2020-11-07] MEDS: MIRTAZAPINE 30 MG TABLET PO SCH (21:04)
[2020-11-07] MEDS: THIAMINE HCL 100 MG TABLET (FP) PO SCH (21:04)
[2020-11-08] MEDS ORDERED: METHADONE HCL 40 MG DISPERSABLE TABLET ONE (05:40)
[2020-11-08] MEDS ORDERED: METHADONE HCL 10 MG TABLET ONE (05:41)
[2020-11-08] MEDS: METHADONE 80 MG, METHADONE 10 MG PO SCH (05:58)
[2020-11-08 06:54] VITALS: BP 156/96; PULSE 97; TEMP 97.9
[2020-11-08] MEDS: CYPROHEPTADINE HCL 4 MG TABLET PO SCH (06:55)
[2020-11-08] MEDS: metFORMIN HCL 500 MG TABLET (FP) PO SCH (06:55)
[2020-11-08] MEDS: ACETAMINOPHEN 325 MG TABLET (FP) PO PRN (08:24)
[2020-11-08] MEDS: PRENATAL VITAMINS W/ FOLIC ACID TABLET (FP) PO SCH (09:00)
[2020-11-08] MEDS: DONEPEZIL HCL 5 MG TABLET (FP) PO SCH (09:00)
[2020-11-08] MEDS: levETIRAcetam 500 MG TABLET (FP) PO SCH (09:00)
[2020-11-08] MEDS ORDERED: OLANZAPINE 10 MG, OLANZAPINE 5 MG PO SCH (22:00)
== END 2020-11-08 09:18 | disposition other institution (70) | DRG 772 ==
LOC: YASAS 15:34 → Y3W 15:35
PROVIDERS: ADMIT Allergy & Immunology; ATTEND Allergy & Immunology
PROC: HZ42ZZZ Group Counseling for Substance Abuse Treatment, Cognitive-Behavioral (ICD-10-PCS; principal; 2020-10-15)
DX: F13.20 Sedative, hypnotic or anxiolytic dependence, uncomplicated (principal); F11.20 Opioid dependence, uncomplicated; F17.210 Nicotine dependence, cigarettes, uncomplicated; F41.9 Anxiety disorder, unspecified; J45.20 Mild intermittent asthma, uncomplicated; J44.9 Chronic obstructive pulmonary disease, unspecified; E11.9 Type 2 diabetes mellitus without complications; B18.2 Chronic viral hepatitis C; Z96.641 Presence of right artificial hip joint; Z79.84 Long term (current) use of oral hypoglycemic drugs; Z87.81 Personal history of (healed) traumatic fracture; Z87.01 Personal history of pneumonia (recurrent); Z56.0 Unemployment, unspecified; Z59.0 Homelessness
CPT/HCPCS: 36415; 80177; 82962